=== PATIENT | female | born 1995 | race Hispanic/Latino ===

== ENCOUNTER 2022-06-20 15:03 | Emergency (ER) | payer SELFPAY ==
[2022-06-20 16:10] LABS: #Eosinphils 0.1 10x3/uL (0.0-0.5); #Monocytes 0.6 10x3/uL (0.0-1.1); #Neutrophils 8.7 10x3/uL (1.5-8.4); %Basophils 0.2 % (0.0-2.0); %Eosinophils 0.5 % (0.0-6.0); %Lymphocytes 29.4 % (18.0-47.0); %Monocytes 4.8 % (0.0-10.0); %Neutrophils 64.8 % (40.0-75.0); Hemoglobin 12.2 g/dL (12.0-15.5); Mean Corpuscular HGB CONC 35.7 g/dL (32.0-36.0); Mean Corpuscular Hemoglobin 30.3 pg (27.0-33.0); Mean Corpuscular Volume 84.9 fl (81.6-98.3); Mean Platelet Volume 10.6 fl (7.4-10.4); Platelet Count 186 10x3/uL (150-450); Red Blood Cell (RBC) Count 4.03 10x6/uL (3.90-5.03); White Blood Cell (WBC) Count 13.4 10x3/uL (3.5-10.5)
[2022-06-20 16:23] LABS: Anion Gap 14 mmol/L (10-20); BUN (Urea Nitrogen) 13 mg/dL (7.0-18.7); Calc. Creatinine Clearance 0 mL/min (70-130); Calcium 9.1 mg/dL (7.8-10.44); Carbon Dioxide 22 mmol/L (22-29); Chloride 102 mmol/L (98-107); Estimated GFR 122; Glucose 212 mg/dL (70-105); Potassium 3.6 mmol/L (3.5-5.1); Sodium 134 mmol/L (136-145)
== END 2022-06-20 17:28 | disposition home or self-care (01) ==
LOC: CSHERS 15:03
DX: O21.9 Vomiting of pregnancy, unspecified (principal); O24.111 Pre-existing type 2 diabetes mellitus, in pregnancy, first trimester; Z3A.09 9 weeks gestation of pregnancy
CPT/HCPCS: 36415; 76856; 80048; 84702; 85025

== ENCOUNTER 2022-07-20 15:26 | Inpatient (IN) | payer OTHER, SELFPAY ==
[2022-07-20] MEDS ORDERED: Electrolyte Replacement Protocol 1 EACH IVPB PRN (16:13)
[2022-07-20] MEDS ORDERED: Sodium Chloride 0.9% 1,000 ML IV PRN ×4 (16:13)
[2022-07-20] MEDS ORDERED: Dextrose 5 %-0.45 % NaCl 1,000 ML IV PRN (16:13)
[2022-07-20] MEDS ORDERED: NS 0.9% w/ 20 MEQ KCL 1,000 ML IV PRN ×2 (16:13)
[2022-07-20] MEDS ORDERED: Acetaminophen 325 MG TAB PO PRN (16:13)
[2022-07-20] MEDS ORDERED: INSULIN REGULAR IN 0.9 % NACL 100 UNIT in Premix Bag 1 BAG IVPB SCH (16:30)
[2022-07-20] MEDS: Ondansetron PF 4 MG/2 ML Vial IVP PRN ×2 (16:34→20:32)
[2022-07-20] MEDS ORDERED: FLU VACC QS2022-23(6MOS UP)/PF 60 MCG/0.5 ML SYRINGE IM ONE (17:00)
[2022-07-20 17:06] LABS: Anion Gap 15 mmol/L (10-20); BUN (Urea Nitrogen) 11 mg/dL (7.0-18.7); Calc. Creatinine Clearance 194 mL/min (70-130); Calcium 8.9 mg/dL (7.8-10.44); Carbon Dioxide 19 mmol/L (22-29); Chloride 111 mmol/L (98-107); Estimated GFR 119; Glucose 197 mg/dL (70-105); Phosphorus 2.1 mg/dL (2.3-4.7); Potassium 3.3 mmol/L (3.5-5.1); Sodium 142 mmol/L (136-145)
[2022-07-20] MEDS: D5 1/2 NS w/20 mEq KCL 1,000 ML IV PRN ×2 (18:30→22:30)
[2022-07-20 21:05] LABS: Anion Gap 14 mmol/L (10-20); BUN (Urea Nitrogen) 12 mg/dL (7.0-18.7); Calc. Creatinine Clearance 186 mL/min (70-130); Calcium 8.9 mg/dL (7.8-10.44); Carbon Dioxide 21 mmol/L (22-29); Chloride 113 mmol/L (98-107); Estimated GFR 113; Glucose 137 mg/dL (70-105); Potassium 3.5 mmol/L (3.5-5.1); Sodium 144 mmol/L (136-145)
[2022-07-20] MEDS ORDERED: Lantus 1000 UNITS/10 ML VIAL SC SCH (21:45)
[2022-07-20 22:00] LABS: Hemoglobin A1c 7.5 % (4.0-6.0)
[2022-07-21 01:11] LABS: Anion Gap 15 mmol/L (10-20); BUN (Urea Nitrogen) 12 mg/dL (7.0-18.7); Calc. Creatinine Clearance 172 mL/min (70-130); Calcium 8.8 mg/dL (7.8-10.44); Carbon Dioxide 18 mmol/L (22-29); Chloride 111 mmol/L (98-107); Estimated GFR 103; Glucose 265 mg/dL (70-105); Potassium 3.6 mmol/L (3.5-5.1); Sodium 140 mmol/L (136-145)
[2022-07-21] MEDS: Ondansetron PF 4 MG/2 ML Vial IVP PRN ×6 (01:31→21:12)
[2022-07-21] MEDS: D5 1/2 NS w/20 mEq KCL 1,000 ML IV PRN ×2 (02:37→06:30)
[2022-07-21 04:30] LABS: SARS-CoV-2 NAA Rapid Test Not Detected (NotDetected)
[2022-07-21 04:46] LABS: Anion Gap 13 mmol/L (10-20); BUN (Urea Nitrogen) 11 mg/dL (7.0-18.7); Calc. Creatinine Clearance 172 mL/min (70-130); Calcium 8.5 mg/dL (7.8-10.44); Carbon Dioxide 20 mmol/L (22-29); Chloride 113 mmol/L (98-107); Estimated GFR 103; Glucose 221 mg/dL (70-105); Potassium 3.4 mmol/L (3.5-5.1); Sodium 143 mmol/L (136-145)
[2022-07-21] MEDS: Lantus 1000 UNITS/10 ML VIAL SC SCH ×2 (08:14→21:10)
[2022-07-21] MEDS: Enoxaparin Sodium 40 MG/0.4 ML SYRINGE SC SCH (08:17)
[2022-07-21 08:50] LABS: Phosphorus 2.3 mg/dL (2.3-4.7)
[2022-07-21] MEDS ORDERED: Dextrose 5% in Water 1,000 ML IV PRN (10:16)
[2022-07-21] MEDS ORDERED: Dextrose 50% Abboject 50 ML SYRINGE SLOW IVP PRN (10:16)
[2022-07-21] MEDS: Lactated Ringer's 1,000 ML IV SCH ×3 (10:51→21:10)
[2022-07-21] MEDS: HumaLOG 300 UNITS/3 ML VIAL SC SCH ×2 (11:28→16:15)
[2022-07-21] MEDS: HumaLOG 300 UNITS/3 ML VIAL SC PRN (21:11)
[2022-07-22] MEDS: HumaLOG 300 UNITS/3 ML VIAL SC PRN ×2 (00:30→04:42)
[2022-07-22] MEDS: Ondansetron PF 4 MG/2 ML Vial IVP PRN ×2 (01:00→11:40)
[2022-07-22] MEDS: Promethazine HCl 12.5 MG in Sodium Chloride 0.9% 50 ML IVPB PRN ×3 (01:53→13:29)
[2022-07-22] MEDS: Lactated Ringer's 1,000 ML IV SCH ×5 (01:54→22:28)
[2022-07-22 05:21] LABS: #Monocytes 0.7 10x3/uL (0.0-1.1); %Basophils 0.2 % (0.0-2.0); %Eosinophils 0.1 % (0.0-6.0); %Lymphocytes 14.2 % (18.0-47.0); %Monocytes 3.8 % (0.0-10.0); %Neutrophils 81.1 % (40.0-75.0); Hemoglobin 10.4 g/dL (12.0-15.5); Mean Corpuscular Hemoglobin 30.1 pg (27.0-33.0); Mean Corpuscular Volume 86.1 fl (81.6-98.3); Mean Platelet Volume 10.2 fl (7.4-10.4); Platelet Count 166 10x3/uL (150-450); RBC Distribution Width 14.5 % (11.5-14.5); Red Blood Cell (RBC) Count 3.45 10x6/uL (3.90-5.03); White Blood Cell (WBC) Count 17.3 10x3/uL (3.5-10.5)
[2022-07-22 05:22] LABS: Anion Gap 14 mmol/L (10-20); BUN (Urea Nitrogen) 10 mg/dL (7.0-18.7); Calc. Creatinine Clearance 193 mL/min (70-130); Calcium 8.7 mg/dL (7.8-10.44); Carbon Dioxide 22 mmol/L (22-29); Chloride 109 mmol/L (98-107); Estimated GFR 115; Glucose 195 mg/dL (70-105); Magnesium 1.7 mg/dL (1.6-2.6); Phosphorus 3.6 mg/dL (2.3-4.7); Sodium 142 mmol/L (136-145)
[2022-07-22] MEDS ORDERED: Magnesium 2 GM/50 ML(in water) 2 GM in Premix Bag 1 BAG IVPB SCH (08:00)
[2022-07-22] MEDS: HumaLOG 300 UNITS/3 ML VIAL SC SCH ×3 (08:25→17:25)
[2022-07-22] MEDS: Lantus 1000 UNITS/10 ML VIAL SC SCH ×2 (08:25→21:26)
[2022-07-22] MEDS: Enoxaparin Sodium 40 MG/0.4 ML SYRINGE SC SCH (08:26)
[2022-07-22] MEDS: Potassium Chloride 20 MEQ TAB PO SCH ×2 (08:26→09:20)
[2022-07-22] MEDS: Potassium Chloride 20 MEQ in Premix Bag 1 BAG IVPB SCH ×2 (10:09→12:20)
[2022-07-22] MEDS ORDERED: Metoclopramide HCl 10 MG/2 ML VIAL IVP SCH (13:00)
[2022-07-22 13:12] LABS: Free T4 (Free Thyroxine) 0.97 ng/dL (0.70-1.48)
[2022-07-22] MEDS: Metoclopramide HCl 10 MG/2 ML VIAL IVP SCH (21:21)
[2022-07-23] MEDS: HumaLOG 300 UNITS/3 ML VIAL SC PRN (01:01)
[2022-07-23] MEDS: Lactated Ringer's 1,000 ML IV SCH ×5 (02:20→20:55)
[2022-07-23 04:44] LABS: #Monocytes 0.7 10x3/uL (0.0-1.1); #Neutrophils 10.8 10x3/uL (1.5-8.4); %Basophils 0.1 % (0.0-2.0); %Eosinophils 0.1 % (0.0-6.0); %Lymphocytes 20.3 % (18.0-47.0); %Neutrophils 73.9 % (40.0-75.0); Anion Gap 12 mmol/L (10-20); BUN (Urea Nitrogen) 8 mg/dL (7.0-18.7); Calc. Creatinine Clearance 226 mL/min (70-130); Calcium 8.6 mg/dL (7.8-10.44); Carbon Dioxide 26 mmol/L (22-29); Chloride 105 mmol/L (98-107); Estimated GFR 124; Glucose 162 mg/dL (70-105); Hemoglobin 10.7 g/dL (12.0-15.5); Magnesium 1.8 mg/dL (1.6-2.6); Mean Corpuscular HGB CONC 35.8 g/dL (32.0-36.0); Mean Corpuscular Hemoglobin 30.4 pg (27.0-33.0); Mean Corpuscular Volume 84.9 fl (81.6-98.3); Mean Platelet Volume 10.3 fl (7.4-10.4); Platelet Count 162 10x3/uL (150-450); Potassium 2.9 mmol/L (3.5-5.1); RBC Distribution Width 13.9 % (11.5-14.5); Red Blood Cell (RBC) Count 3.52 10x6/uL (3.90-5.03); Sodium 140 mmol/L (136-145); White Blood Cell (WBC) Count 14.7 10x3/uL (3.5-10.5)
[2022-07-23] MEDS: Metoclopramide HCl 10 MG/2 ML VIAL IVP SCH ×3 (05:10→20:55)
[2022-07-23] MEDS ORDERED: Magnesium 2 GM/50 ML(in water) 2 GM in Premix Bag 1 BAG IVPB SCH (05:15)
[2022-07-23] MEDS ORDERED: Potassium Chloride 20 MEQ/100 ML PREMIX BAG ONE (05:30)
[2022-07-23] MEDS: Potassium Chloride 20 MEQ in Premix Bag 1 BAG IVPB SCH ×4 (05:31→11:47)
[2022-07-23] MEDS: Promethazine HCl 12.5 MG in Sodium Chloride 0.9% 50 ML IVPB PRN ×2 (06:28→18:18)
[2022-07-23] MEDS: Lantus 1000 UNITS/10 ML VIAL SC SCH ×2 (08:00→21:03)
[2022-07-23] MEDS: Enoxaparin Sodium 40 MG/0.4 ML SYRINGE SC SCH (08:00)
[2022-07-23] MEDS: HumaLOG 300 UNITS/3 ML VIAL SC SCH ×4 (08:05→16:00)
[2022-07-23 13:49] LABS: Bilirubin Neg (Negative); Blood, Urine 25 (Negative); CAUTI Indications for Culture Pregnancy; Clarity Clear (Clear); Glucose, Urine (Dipstick) 100 mg/dL (Negative); Ketone, Urine 50 mg/dL (Negative); Leukocyte 25 (Negative); Nitrite Negative (Negative); Protein, Urine (Dipstick) 15 mg/dl (Neg-Trace)
[2022-07-23 13:50] LABS: Urine Culture Reflex Yes Yes
[2022-07-23 14:00] LABS: Bacteria/HPF Rare-Few HPF (None Seen); Yeast-Budding Rare HPF (None Seen)
[2022-07-24 04:54] LABS: #Eosinphils 0.1 10x3/uL (0.0-0.5); #Monocytes 0.8 10x3/uL (0.0-1.1); #Neutrophils 8.5 10x3/uL (1.5-8.4); %Basophils 0.2 % (0.0-2.0); %Eosinophils 0.7 % (0.0-6.0); %Lymphocytes 26.6 % (18.0-47.0); %Monocytes 6.4 % (0.0-10.0); %Neutrophils 65.7 % (40.0-75.0); Hemoglobin 10.4 g/dL (12.0-15.5); Mean Corpuscular HGB CONC 36.4 g/dL (32.0-36.0); Mean Corpuscular Hemoglobin 30.3 pg (27.0-33.0); Mean Corpuscular Volume 83.4 fl (81.6-98.3); Mean Platelet Volume 10.3 fl (7.4-10.4); Platelet Count 152 10x3/uL (150-450); RBC Distribution Width 13.4 % (11.5-14.5); Red Blood Cell (RBC) Count 3.43 10x6/uL (3.90-5.03)
[2022-07-24 05:05] LABS: Anion Gap 13 mmol/L (10-20); BUN (Urea Nitrogen) 7 mg/dL (7.0-18.7); Calc. Creatinine Clearance 249 mL/min (70-130); Calcium 8.5 mg/dL (7.8-10.44); Carbon Dioxide 24 mmol/L (22-29); Chloride 103 mmol/L (98-107); Estimated GFR 127; Glucose 98 mg/dL (70-105); Sodium 137 mmol/L (136-145)
[2022-07-24] MEDS: Lactated Ringer's 1,000 ML IV SCH ×2 (05:21→16:24)
[2022-07-24] MEDS: Metoclopramide HCl 10 MG/2 ML VIAL IVP SCH ×3 (05:36→22:33)
[2022-07-24] MEDS: Potassium Chloride 20 MEQ in Premix Bag 1 BAG IVPB SCH ×2 (06:26→09:17)
[2022-07-24] MEDS: Lantus 1000 UNITS/10 ML VIAL SC SCH (09:12)
[2022-07-24] MEDS: HumaLOG 300 UNITS/3 ML VIAL SC SCH ×3 (09:12→16:47)
[2022-07-24] MEDS: diphenhydrAMINE 50 MG/ML VIAL IVP SCH ×3 (09:16→20:21)
[2022-07-24] MEDS: Ondansetron PF 4 MG/2 ML Vial IVP SCH ×3 (09:16→20:21)
[2022-07-24] MEDS: Enoxaparin Sodium 40 MG/0.4 ML SYRINGE SC SCH (09:17)
[2022-07-24] MEDS: cefTRIAXone\\ROCEPHIN 1 GM in Sodium Chloride 0.9% 100 ML IVPB SCH (09:17)
[2022-07-25] MEDS: diphenhydrAMINE 50 MG/ML VIAL IVP SCH ×4 (01:50→20:30)
[2022-07-25] MEDS: Ondansetron PF 4 MG/2 ML Vial IVP SCH ×4 (01:50→20:30)
[2022-07-25] MEDS: Lactated Ringer's 1,000 ML IV SCH ×2 (02:15→14:24)
[2022-07-25] MEDS: Metoclopramide HCl 10 MG/2 ML VIAL IVP SCH ×3 (06:08→22:49)
[2022-07-25] MEDS: HumaLOG 300 UNITS/3 ML VIAL SC SCH ×3 (08:29→17:16)
[2022-07-25] MEDS: Enoxaparin Sodium 40 MG/0.4 ML SYRINGE SC SCH (08:29)
[2022-07-25 08:39] VITALS: BMI 37.1
[2022-07-25] MEDS ORDERED: Fluconazole In NaCl,Iso-Osm 200 MG in Premix Bag 1 BAG IVPB SCH (09:00)
[2022-07-25] MEDS: cefTRIAXone\\ROCEPHIN 1 GM in Sodium Chloride 0.9% 100 ML IVPB SCH (09:46)
[2022-07-25] MEDS ORDERED: Metoclopramide HCl 10 MG/2 ML VIAL ONE (13:55)
[2022-07-25 15:34] LABS: ALT (SGPT) 16 U/L (8-55); AST (SGOT) 13 U/L (5-34); Albumin 3.1 g/dL (3.5-5.0); Alkaline Phosphatase 48 U/L (40-110); Bilirubin, Direct 0.3 mg/dL (0.1-0.3); Bilirubin, Total 0.7 mg/dL (0.2-1.2)
[2022-07-26] MEDS: Ondansetron PF 4 MG/2 ML Vial IVP SCH ×2 (01:58→07:59)
[2022-07-26] MEDS: diphenhydrAMINE 50 MG/ML VIAL IVP SCH ×3 (01:58→14:11)
[2022-07-26] MEDS: Metoclopramide HCl 10 MG/2 ML VIAL IVP SCH (05:30)
[2022-07-26] MEDS: Enoxaparin Sodium 40 MG/0.4 ML SYRINGE SC SCH (07:59)
[2022-07-26] MEDS: cefTRIAXone\\ROCEPHIN 1 GM in Sodium Chloride 0.9% 100 ML IVPB SCH (07:59)
[2022-07-26] MEDS: HumaLOG 300 UNITS/3 ML VIAL SC SCH ×3 (08:00→16:57)
[2022-07-26] MEDS ORDERED: Fleet Enema 133 ML BOT PR SCH (09:00)
[2022-07-26] MEDS ORDERED: Ondansetron ODT 8 MG TAB PO PRN (09:55)
[2022-07-26] MEDS ORDERED: Promethazine 25 MG TAB PO PRN (09:56)
[2022-07-26] MEDS: Ondansetron ODT 4 MG TAB PO PRN ×2 (11:35→17:34)
[2022-07-26 16:23] LABS: Protein, Urine 19 mg/dL (1-14)
[2022-07-26 16:47] LABS: Protein - 24 Hr 485 mg/24 hr (Less than 300); Urine Total Volume 2550 mL (600-1600)
[2022-07-26 17:42] VITALS: BP 129/77; TEMP 98.6
== END 2022-07-26 18:06 | disposition home or self-care (01) | DRG 831 ==
LOC: CSHIMCU 15:26 → CSHTELE 07-21 18:25
PROVIDERS: ADMIT Internal Medicine; ATTEND Hospitalist
DX: O24.112 Pre-existing type 2 diabetes mellitus, in pregnancy, second trimester (principal); E11.10 Type 2 diabetes mellitus with ketoacidosis without coma; O21.1 Hyperemesis gravidarum with metabolic disturbance; O99.282 Endocrine, nutritional and metabolic diseases complicating pregnancy, second trimester; Z3A.14 14 weeks gestation of pregnancy; Z79.84 Long term (current) use of oral hypoglycemic drugs; Z98.890 Other specified postprocedural states; E83.42 Hypomagnesemia; Z20.822 Contact with and (suspected) exposure to COVID-19
CPT/HCPCS: 36415; 36416; 80048; 80076; 81001; 83036; 83735; 84100; 84156; 84439; 84443; 84550; 85025; 87086; J0696; J1200; J1450; J1650; J1815; J2405; J2550; J2765; J3475; J3480; J3490; J7120; Q0162; U0002

== ENCOUNTER 2022-09-06 20:50 | Day surgery (SDC) | payer OTHER ==
[2022-09-06] MEDS ORDERED: Lactated Ringer's 1,000 ML IV SCH (21:15)
[2022-09-06] MEDS ORDERED: Ondansetron PF 4 MG/2 ML Vial IVP SCH (21:30)
[2022-09-06 21:37] VITALS: BMI 40.4
[2022-09-06] MEDS ORDERED: Promethazine HCl 25 MG/ML VIAL IM SCH (21:45)
[2022-09-06 21:46] LABS: #Monocytes 0.6 10x3/uL (0.0-1.1); #Neutrophils 13.2 10x3/uL (1.5-8.4); %Basophils 0.2 % (0.0-2.0); %Eosinophils 0.2 % (0.0-6.0); %Lymphocytes 16.6 % (18.0-47.0); %Monocytes 3.3 % (0.0-10.0); %Neutrophils 78.7 % (40.0-75.0); Hemoglobin 11.1 g/dL (12.0-15.5); Mean Corpuscular HGB CONC 34.9 g/dL (32.0-36.0); Mean Corpuscular Hemoglobin 30.7 pg (27.0-33.0); Mean Corpuscular Volume 87.8 fl (81.6-98.3); Mean Platelet Volume 10.7 fl (7.4-10.4); Platelet Count 234 10x3/uL (150-450); RBC Distribution Width 14.2 % (11.5-14.5); Red Blood Cell (RBC) Count 3.62 10x6/uL (3.90-5.03); White Blood Cell (WBC) Count 16.7 10x3/uL (3.5-10.5)
[2022-09-06 21:48] LABS: ALT (SGPT) 13 U/L (8-55); AST (SGOT) 13 U/L (5-34); Alkaline Phosphatase 47 U/L (40-110); Anion Gap 17 mmol/L (10-20); BUN (Urea Nitrogen) 11 mg/dL (7.0-18.7); Bilirubin, Total 0.3 mg/dL (0.2-1.2); Calc. Creatinine Clearance 214 mL/min (70-130); Calcium 9.9 mg/dL (7.8-10.44); Carbon Dioxide 22 mmol/L (22-29); Chloride 102 mmol/L (98-107); Estimated GFR 122; Globulin 3.9 g/dL (2.4-3.5); Glucose 146 mg/dL (70-105); Potassium 3.3 mmol/L (3.5-5.1); Protein, Total 7.9 g/dL (6.0-8.3); Sodium 138 mmol/L (136-145)
[2022-09-06] MEDS ORDERED: Potassium Chloride 10 MEQ in Premix Bag 1 BAG IVPB SCH (22:30)
[2022-09-07] MEDS ORDERED: Ondansetron PF 4 MG/2 ML Vial IVP PRN (00:02)
[2022-09-07] MEDS ORDERED: Acetaminophen 325 MG TAB PO PRN (00:02)
[2022-09-07] MEDS ORDERED: Dextrose 50% Abboject 50 ML SYRINGE SLOW IVP PRN (00:15)
[2022-09-07] MEDS ORDERED: Dextrose 5% in Water 1,000 ML IV PRN (00:15)
[2022-09-07 00:39] LABS: Lactic Acid 1.4 mmol/L (0.5-2.2)
[2022-09-07 01:50] LABS: Bilirubin Neg (Negative); Blood, Urine 25 (Negative); CAUTI Indications for Culture Pregnancy; Clarity Cloudy (Clear); Glucose, Urine (Dipstick) 50 mg/dL (Negative); Ketone, Urine 150 mg/dL (Negative); Leukocyte Negative (Negative); Nitrite Negative (Negative); Protein, Urine (Dipstick) 30 mg/dl (Neg-Trace)
[2022-09-07 02:05] LABS: Bacteria/HPF 2+ HPF (None Seen); RBC/HPF 0-3 HPF (0-3); Squamous Epithelial None Seen HPF (0-3); Transitional Epithelial 0-3 HPF (None Seen); WBC/HPF 0-3 HPF (0-3)
[2022-09-07 02:07] LABS: Urine Culture Reflex Yes Yes
[2022-09-07 04:40] LABS: ALT (SGPT) 10 U/L (8-55); AST (SGOT) 8 U/L (5-34); Albumin 3.5 g/dL (3.5-5.0); Alkaline Phosphatase 44 U/L (40-110); Anion Gap 19 mmol/L (10-20); BUN (Urea Nitrogen) 12 mg/dL (7.0-18.7); Bilirubin, Total 0.3 mg/dL (0.2-1.2); Calc. Creatinine Clearance 202 mL/min (70-130); Carbon Dioxide 20 mmol/L (22-29); Chloride 106 mmol/L (98-107); Estimated GFR 117; Globulin 3.4 g/dL (2.4-3.5); Glucose 240 mg/dL (70-105); Potassium 3.5 mmol/L (3.5-5.1); Protein, Total 6.9 g/dL (6.0-8.3); Sodium 141 mmol/L (136-145)
[2022-09-07 04:49] LABS: #Monocytes 0.3 10x3/uL (0.0-1.1); #Neutrophils 15.6 10x3/uL (1.5-8.4); %Basophils 0.2 % (0.0-2.0); %Monocytes 1.6 % (0.0-10.0); %Neutrophils 88.1 % (40.0-75.0); Hemoglobin 10.7 g/dL (12.0-15.5); Mean Corpuscular HGB CONC 34.9 g/dL (32.0-36.0); Mean Corpuscular Hemoglobin 31.2 pg (27.0-33.0); Mean Corpuscular Volume 89.5 fl (81.6-98.3); Mean Platelet Volume 10.6 fl (7.4-10.4); Platelet Count 220 10x3/uL (150-450); RBC Distribution Width 14.3 % (11.5-14.5); Red Blood Cell (RBC) Count 3.43 10x6/uL (3.90-5.03); White Blood Cell (WBC) Count 17.7 10x3/uL (3.5-10.5)
[2022-09-07] MEDS ORDERED: Metoclopramide HCl 10 MG/2 ML VIAL IVP SCH (06:00)
[2022-09-07] MEDS ORDERED: Famotidine/PF 20 mg/2ml Vial SLOW IVP SCH (09:00)
== END 2022-09-06 22:42 | disposition other institution (70) ==
LOC: CSHLD/OP 20:50
PROVIDERS: ATTEND Family Medicine
DX: O21.1 Hyperemesis gravidarum with metabolic disturbance (principal); O24.112 Pre-existing type 2 diabetes mellitus, in pregnancy, second trimester; E11.10 Type 2 diabetes mellitus with ketoacidosis without coma; O99.282 Endocrine, nutritional and metabolic diseases complicating pregnancy, second trimester; E86.0 Dehydration; Z79.4 Long term (current) use of insulin; Z3A.21 21 weeks gestation of pregnancy
CPT/HCPCS: 36415; 36416; 80053; 81001; 83605; 85025; 87077; 87086; 99282; J2550; J3480

== ENCOUNTER 2022-09-06 22:43 | Inpatient (IN) | payer OTHER ==
[2022-09-06] MEDS ORDERED: Metoclopramide HCl 10 MG/2 ML VIAL ONE (22:57)
[2022-09-07 01:10] LABS: SARS-CoV-2 NAA Rapid Test Not Detected (NotDetected)
[2022-09-07] MEDS ORDERED: Dextrose 5% in Water 1,000 ML IV PRN (01:15)
[2022-09-07] MEDS ORDERED: Dextrose 50% Abboject 50 ML SYRINGE SLOW IVP PRN (01:15)
[2022-09-07 01:31] LABS: Magnesium 1.8 mg/dL (1.6-2.6)
[2022-09-07] MEDS: Potassium Chloride 20 MEQ in Premix Bag 1 BAG IVPB SCH ×4 (02:21→23:42)
[2022-09-07 03:57] LABS: Bilirubin Neg (Negative); Blood, Urine 50 (Negative); Glucose, Urine (Dipstick) >=1000 mg/dL (Negative); Ketone, Urine 150 mg/dL (Negative); Leukocyte Negative (Negative); Nitrite Negative (Negative); Protein, Urine (Dipstick) 30 mg/dl (Neg-Trace); Urobilinogen Normal mg/dL (Less than 2)
[2022-09-07 04:05] LABS: Bacteria/HPF 3+ HPF (None Seen); CAUTI Indications for Culture Pregnancy; Clarity Slightly Cloudy (Clear); RBC/HPF 0-3 HPF (0-3); WBC/HPF 0-3 HPF (0-3)
[2022-09-07] MEDS ORDERED: Lactated Ringer's 1,000 ML IV SCH (05:15)
[2022-09-07] MEDS: Lactated Ringer's 1,000 ML IV SCH ×3 (05:18→21:25)
[2022-09-07] MEDS: Metoclopramide HCl 10 MG/2 ML VIAL IVP SCH ×3 (05:41→23:43)
[2022-09-07 07:05] LABS: #Monocytes 0.5 10x3/uL (0.0-1.1); #Neutrophils 15.4 10x3/uL (1.5-8.4); %Basophils 0.1 % (0.0-2.0); %Lymphocytes 11.4 % (18.0-47.0); %Monocytes 2.5 % (0.0-10.0); Hemoglobin 9.9 g/dL (12.0-15.5); Mean Corpuscular HGB CONC 35.1 g/dL (32.0-36.0); Mean Corpuscular Hemoglobin 31.1 pg (27.0-33.0); Mean Corpuscular Volume 88.7 fl (81.6-98.3); Mean Platelet Volume 10.4 fl (7.4-10.4); Platelet Count 210 10x3/uL (150-450); RBC Distribution Width 14.5 % (11.5-14.5); Red Blood Cell (RBC) Count 3.18 10x6/uL (3.90-5.03); White Blood Cell (WBC) Count 18.1 10x3/uL (3.5-10.5)
[2022-09-07] MEDS: HumaLOG 300 UNITS/3 ML VIAL SC PRN ×2 (07:12→14:41)
[2022-09-07 07:17] LABS: Anion Gap 20 mmol/L (10-20); BUN (Urea Nitrogen) 10 mg/dL (7.0-18.7); Calc. Creatinine Clearance 0 mL/min (70-130); Calcium 8.5 mg/dL (7.8-10.44); Carbon Dioxide 16 mmol/L (22-29); Chloride 108 mmol/L (98-107); Estimated GFR 121; Glucose 228 mg/dL (70-105); Potassium 3.8 mmol/L (3.5-5.1); Sodium 140 mmol/L (136-145)
[2022-09-07] MEDS: Famotidine/PF 20 mg/2ml Vial SLOW IVP SCH ×2 (09:26→20:37)
[2022-09-07] MEDS: Lantus 1000 UNITS/10 ML VIAL SC SCH (09:26)
[2022-09-07] MEDS: Ondansetron PF 4 MG/2 ML Vial IVP PRN ×2 (11:49→17:39)
[2022-09-07 19:29] LABS: #Neutrophils 15.6 10x3/uL (1.5-8.4); %Basophils 0.2 % (0.0-2.0); %Eosinophils 0.1 % (0.0-6.0); %Lymphocytes 13.4 % (18.0-47.0); %Monocytes 5.1 % (0.0-10.0); %Neutrophils 80.3 % (40.0-75.0); Hemoglobin 9.8 g/dL (12.0-15.5); Mean Corpuscular HGB CONC 34.4 g/dL (32.0-36.0); Mean Corpuscular Hemoglobin 31.1 pg (27.0-33.0); Mean Corpuscular Volume 90.5 fl (81.6-98.3); Mean Platelet Volume 10.4 fl (7.4-10.4); Platelet Count 209 10x3/uL (150-450); RBC Distribution Width 14.6 % (11.5-14.5); Red Blood Cell (RBC) Count 3.15 10x6/uL (3.90-5.03); White Blood Cell (WBC) Count 19.4 10x3/uL (3.5-10.5)
[2022-09-07 20:25] LABS: Anion Gap 14 mmol/L (10-20); BUN (Urea Nitrogen) 10 mg/dL (7.0-18.7); Calc. Creatinine Clearance 0 mL/min (70-130); Calcium 8.5 mg/dL (7.8-10.44); Carbon Dioxide 21 mmol/L (22-29); Chloride 108 mmol/L (98-107); Estimated GFR 124; Glucose 164 mg/dL (70-105); Magnesium 2.1 mg/dL (1.6-2.6); Potassium 3.5 mmol/L (3.5-5.1); Sodium 139 mmol/L (136-145)
[2022-09-07] MEDS: Doxylamine 25 MG TAB PO SCH ×2 (20:38→21:58)
[2022-09-07] MEDS: cefTRIAXone\\ROCEPHIN 2 GM in Sodium Chloride 0.9% 100 ML IVPB SCH (21:36)
[2022-09-07] MEDS: Ondansetron PF 4 MG/2 ML Vial IVP SCH (23:45)
[2022-09-07] MEDS: pyridOXINE 50 MG (B6) TAB PO SCH (23:47)
[2022-09-08] MEDS: HumaLOG 300 UNITS/3 ML VIAL SC PRN ×3 (00:06→18:28)
[2022-09-08] MEDS: Potassium Chloride 20 MEQ in Premix Bag 1 BAG IVPB SCH (02:02)
[2022-09-08] MEDS: Doxylamine 25 MG TAB PO SCH ×4 (02:37→20:24)
[2022-09-08 05:19] LABS: #Monocytes 0.8 10x3/uL (0.0-1.1); #Neutrophils 13.9 10x3/uL (1.5-8.4); %Basophils 0.2 % (0.0-2.0); %Eosinophils 0.1 % (0.0-6.0); %Lymphocytes 15.2 % (18.0-47.0); %Monocytes 4.8 % (0.0-10.0); %Neutrophils 78.9 % (40.0-75.0); Hemoglobin 9.4 g/dL (12.0-15.5); Mean Corpuscular HGB CONC 34.3 g/dL (32.0-36.0); Mean Corpuscular Hemoglobin 31.4 pg (27.0-33.0); Mean Corpuscular Volume 91.6 fl (81.6-98.3); Mean Platelet Volume 10.4 fl (7.4-10.4); Platelet Count 208 10x3/uL (150-450); RBC Distribution Width 14.4 % (11.5-14.5); Red Blood Cell (RBC) Count 2.99 10x6/uL (3.90-5.03); White Blood Cell (WBC) Count 17.6 10x3/uL (3.5-10.5)
[2022-09-08] MEDS: Lactated Ringer's 1,000 ML IV SCH (05:24)
[2022-09-08 05:27] LABS: Anion Gap 13 mmol/L (10-20); BUN (Urea Nitrogen) 8 mg/dL (7.0-18.7); Calc. Creatinine Clearance 0 mL/min (70-130); Calcium 8.5 mg/dL (7.8-10.44); Carbon Dioxide 21 mmol/L (22-29); Chloride 108 mmol/L (98-107); Estimated GFR 125; Glucose 167 mg/dL (70-105); Potassium 3.6 mmol/L (3.5-5.1); Sodium 138 mmol/L (136-145)
[2022-09-08] MEDS: Metoclopramide HCl 10 MG/2 ML VIAL IVP SCH ×4 (05:40→23:51)
[2022-09-08] MEDS: Ondansetron PF 4 MG/2 ML Vial IVP SCH ×4 (05:43→23:51)
[2022-09-08] MEDS: pyridOXINE 50 MG (B6) TAB PO SCH ×4 (05:51→23:26)
[2022-09-08] MEDS: Lantus 1000 UNITS/10 ML VIAL SC SCH (09:32)
[2022-09-08] MEDS: Famotidine/PF 20 mg/2ml Vial SLOW IVP SCH (09:32)
[2022-09-08] MEDS ORDERED: Sodium Chloride 0.9% 1,000 ML IV SCH (13:30)
[2022-09-08] MEDS ORDERED: Pantoprazole 40 MG VIAL IVP SCH (14:00)
[2022-09-08] MEDS ORDERED: Multivit, Adult Inj 10 ML VIAL IV SCH (15:00)
[2022-09-08] MEDS: Multivitamins, Adult 10 ML, Thiamine HCl 100 MG, Folic Acid 1 MG in Dextrose 5 %-0.45 %... IV SCH (15:11)
[2022-09-08] MEDS: diphenhydrAMINE 25 MG, Admixture Fee 1 EACH in Sodium Chloride 0.9% 50 ML IVPB SCH ×3 (17:56→23:50)
[2022-09-08] MEDS: cefTRIAXone\\ROCEPHIN 2 GM in Sodium Chloride 0.9% 100 ML IVPB SCH (21:41)
[2022-09-09] MEDS: HumaLOG 300 UNITS/3 ML VIAL SC PRN ×3 (00:07→18:06)
[2022-09-09] MEDS: Doxylamine 25 MG TAB PO SCH ×4 (03:28→21:00)
[2022-09-09 05:15] LABS: #Monocytes 0.8 10x3/uL (0.0-1.1); %Basophils 0.3 % (0.0-2.0); %Eosinophils 0.3 % (0.0-6.0); %Lymphocytes 21.5 % (18.0-47.0); %Monocytes 5.3 % (0.0-10.0); %Neutrophils 71.6 % (40.0-75.0); Hemoglobin 8.8 g/dL (12.0-15.5); Mean Corpuscular HGB CONC 35.1 g/dL (32.0-36.0); Mean Corpuscular Hemoglobin 31.7 pg (27.0-33.0); Mean Corpuscular Volume 90.3 fl (81.6-98.3); Mean Platelet Volume 10.2 fl (7.4-10.4); Platelet Count 194 10x3/uL (150-450); Red Blood Cell (RBC) Count 2.78 10x6/uL (3.90-5.03); White Blood Cell (WBC) Count 15.3 10x3/uL (3.5-10.5)
[2022-09-09 05:17] LABS: ALT (SGPT) 6 U/L (8-55); AST (SGOT) 9 U/L (5-34); Albumin 3.2 g/dL (3.5-5.0); Alkaline Phosphatase 35 U/L (40-110); Anion Gap 11 mmol/L (10-20); BUN (Urea Nitrogen) 7 mg/dL (7.0-18.7); Bilirubin, Total 0.2 mg/dL (0.2-1.2); Calc. Creatinine Clearance 0 mL/min (70-130); Calcium 7.9 mg/dL (7.8-10.44); Carbon Dioxide 21 mmol/L (22-29); Chloride 108 mmol/L (98-107); Estimated GFR 125; Globulin 2.8 g/dL (2.4-3.5); Glucose 179 mg/dL (70-105); Sodium 137 mmol/L (136-145)
[2022-09-09] MEDS: pyridOXINE 50 MG (B6) TAB PO SCH ×3 (05:47→18:23)
[2022-09-09] MEDS: D5 1/2 NS w/40 mEq KCL 1,000 ML IV SCH ×2 (05:58→16:12)
[2022-09-09] MEDS: Metoclopramide HCl 10 MG/2 ML VIAL IVP SCH (05:58)
[2022-09-09] MEDS: diphenhydrAMINE 25 MG, Admixture Fee 1 EACH in Sodium Chloride 0.9% 50 ML IVPB SCH ×3 (05:59→18:05)
[2022-09-09] MEDS: Ondansetron PF 4 MG/2 ML Vial IVP SCH ×3 (05:59→18:05)
[2022-09-09] MEDS ORDERED: Promethazine HCl 25 MG/ML VIAL IM ONE (07:45)
[2022-09-09] MEDS: Pantoprazole 40 MG VIAL IVP SCH (08:27)
[2022-09-09] MEDS: Magnesium 2 GM/50 ML(in water) 2 GM in Premix Bag 1 BAG IVPB SCH ×2 (09:50→11:50)
[2022-09-09] MEDS: Potassium Chloride 20 MEQ in Premix Bag 1 BAG IVPB SCH ×3 (09:51→15:12)
[2022-09-09] MEDS: Lantus 1000 UNITS/10 ML VIAL SC SCH (09:53)
[2022-09-09] MEDS: Promethazine HCl 12.5 MG SUPP PR SCH ×2 (12:15→18:06)
[2022-09-09] MEDS: Multivitamins, Adult 10 ML, Thiamine HCl 100 MG, Folic Acid 1 MG in Dextrose 5 %-0.45 %... IV SCH (15:10)
[2022-09-09] MEDS: cefTRIAXone\\ROCEPHIN 2 GM in Sodium Chloride 0.9% 100 ML IVPB SCH (20:15)
[2022-09-10] MEDS: D5 1/2 NS w/40 mEq KCL 1,000 ML IV SCH ×3 (00:02→15:16)
[2022-09-10] MEDS ORDERED: Sodium Chloride 0.9% 20 ML ONE (00:12)
[2022-09-10] MEDS: diphenhydrAMINE 25 MG, Admixture Fee 1 EACH in Sodium Chloride 0.9% 50 ML IVPB SCH ×4 (00:36→18:31)
[2022-09-10] MEDS: pyridOXINE 50 MG (B6) TAB PO SCH ×4 (00:39→17:18)
[2022-09-10] MEDS: Promethazine HCl 12.5 MG SUPP PR SCH ×2 (00:39→06:21)
[2022-09-10] MEDS: Ondansetron PF 4 MG/2 ML Vial IVP SCH ×4 (00:39→17:18)
[2022-09-10] MEDS: Doxylamine 25 MG TAB PO SCH ×4 (05:44→21:08)
[2022-09-10 06:26] LABS: Anion Gap 12 mmol/L (10-20); BUN (Urea Nitrogen) 4 mg/dL (7.0-18.7); Calc. Creatinine Clearance 0 mL/min (70-130); Calcium 7.9 mg/dL (7.8-10.44); Carbon Dioxide 19 mmol/L (22-29); Chloride 105 mmol/L (98-107); Estimated GFR 126; Glucose 179 mg/dL (70-105); Potassium 3.4 mmol/L (3.5-5.1); Sodium 133 mmol/L (136-145)
[2022-09-10 06:31] LABS: #Eosinphils 0.1 10x3/uL (0.0-0.5); #Monocytes 0.7 10x3/uL (0.0-1.1); #Neutrophils 9.5 10x3/uL (1.5-8.4); %Basophils 0.3 % (0.0-2.0); %Eosinophils 0.6 % (0.0-6.0); %Lymphocytes 22.1 % (18.0-47.0); %Monocytes 4.8 % (0.0-10.0); %Neutrophils 71.1 % (40.0-75.0); Hemoglobin 9.5 g/dL (12.0-15.5); Mean Corpuscular HGB CONC 34.9 g/dL (32.0-36.0); Mean Corpuscular Hemoglobin 30.9 pg (27.0-33.0); Mean Corpuscular Volume 88.6 fl (81.6-98.3); Mean Platelet Volume 10.2 fl (7.4-10.4); Platelet Count 195 10x3/uL (150-450); RBC Distribution Width 13.9 % (11.5-14.5); Red Blood Cell (RBC) Count 3.07 10x6/uL (3.90-5.03); White Blood Cell (WBC) Count 13.4 10x3/uL (3.5-10.5)
[2022-09-10] MEDS: Lantus 1000 UNITS/10 ML VIAL SC SCH (09:23)
[2022-09-10] MEDS: Potassium Chloride 20 MEQ in Premix Bag 1 BAG IVPB SCH ×3 (09:24→17:18)
[2022-09-10] MEDS: Pantoprazole 40 MG VIAL IVP SCH (09:24)
[2022-09-10 09:32] LABS: Magnesium 2.2 mg/dL (1.6-2.6)
[2022-09-10] MEDS: Promethazine 25 MG TAB PO SCH ×2 (11:48→17:17)
[2022-09-10] MEDS: Multivitamins, Adult 10 ML, Thiamine HCl 100 MG, Folic Acid 1 MG in Dextrose 5 %-0.45 %... IV SCH (17:18)
[2022-09-10] MEDS: cefTRIAXone\\ROCEPHIN 2 GM in Sodium Chloride 0.9% 100 ML IVPB SCH (21:08)
[2022-09-11] MEDS: Promethazine 25 MG TAB PO SCH ×5 (00:39→23:46)
[2022-09-11] MEDS: pyridOXINE 50 MG (B6) TAB PO SCH ×5 (00:39→23:46)
[2022-09-11] MEDS: diphenhydrAMINE 25 MG, Admixture Fee 1 EACH in Sodium Chloride 0.9% 50 ML IVPB SCH ×5 (00:39→23:46)
[2022-09-11] MEDS: Ondansetron PF 4 MG/2 ML Vial IVP SCH ×5 (00:39→23:46)
[2022-09-11] MEDS: Doxylamine 25 MG TAB PO SCH ×4 (02:17→20:26)
[2022-09-11] MEDS: D5 1/2 NS w/40 mEq KCL 1,000 ML IV SCH ×2 (05:11→12:19)
[2022-09-11 05:58] LABS: Anion Gap 12 mmol/L (10-20); BUN (Urea Nitrogen) 4 mg/dL (7.0-18.7); Calc. Creatinine Clearance 0 mL/min (70-130); Carbon Dioxide 19 mmol/L (22-29); Chloride 106 mmol/L (98-107); Estimated GFR 127; Glucose 129 mg/dL (70-105); Potassium 3.4 mmol/L (3.5-5.1); Sodium 134 mmol/L (136-145)
[2022-09-11 06:09] LABS: #Eosinphils 0.1 10x3/uL (0.0-0.5); #Monocytes 0.7 10x3/uL (0.0-1.1); #Neutrophils 8.3 10x3/uL (1.5-8.4); %Basophils 0.2 % (0.0-2.0); %Eosinophils 0.8 % (0.0-6.0); %Monocytes 5.4 % (0.0-10.0); %Neutrophils 67.7 % (40.0-75.0); Hemoglobin 9.8 g/dL (12.0-15.5); Mean Corpuscular HGB CONC 35.8 g/dL (32.0-36.0); Mean Corpuscular Hemoglobin 31.6 pg (27.0-33.0); Mean Corpuscular Volume 88.4 fl (81.6-98.3); Platelet Count 192 10x3/uL (150-450); White Blood Cell (WBC) Count 12.2 10x3/uL (3.5-10.5)
[2022-09-11] MEDS: Pantoprazole 40 MG VIAL IVP SCH (08:11)
[2022-09-11] MEDS: Lantus 1000 UNITS/10 ML VIAL SC SCH (08:12)
[2022-09-11] MEDS: Potassium Chloride 20 MEQ in Premix Bag 1 BAG IVPB SCH ×2 (08:12→10:35)
[2022-09-11] MEDS: cefTRIAXone\\ROCEPHIN 2 GM in Sodium Chloride 0.9% 100 ML IVPB SCH (21:34)
[2022-09-12] MEDS: Doxylamine 25 MG TAB PO SCH ×4 (01:55→21:12)
[2022-09-12] MEDS: D5 1/2 NS w/40 mEq KCL 1,000 ML IV SCH ×4 (01:57→21:11)
[2022-09-12 04:19] LABS: #Eosinphils 0.1 10x3/uL (0.0-0.5); #Monocytes 0.7 10x3/uL (0.0-1.1); #Neutrophils 8.3 10x3/uL (1.5-8.4); %Basophils 0.3 % (0.0-2.0); %Eosinophils 0.9 % (0.0-6.0); %Lymphocytes 26.7 % (18.0-47.0); %Monocytes 5.8 % (0.0-10.0); %Neutrophils 65.5 % (40.0-75.0); Hemoglobin 10.1 g/dL (12.0-15.5); Mean Corpuscular HGB CONC 35.6 g/dL (32.0-36.0); Mean Corpuscular Hemoglobin 31.1 pg (27.0-33.0); Mean Corpuscular Volume 87.4 fl (81.6-98.3); Mean Platelet Volume 9.9 fl (7.4-10.4); Platelet Count 200 10x3/uL (150-450); RBC Distribution Width 14.2 % (11.5-14.5); Red Blood Cell (RBC) Count 3.25 10x6/uL (3.90-5.03); White Blood Cell (WBC) Count 12.7 10x3/uL (3.5-10.5)
[2022-09-12 04:36] LABS: Anion Gap 12 mmol/L (10-20); BUN (Urea Nitrogen) 5 mg/dL (7.0-18.7); Calc. Creatinine Clearance 0 mL/min (70-130); Calcium 8.1 mg/dL (7.8-10.44); Carbon Dioxide 19 mmol/L (22-29); Chloride 106 mmol/L (98-107); Estimated GFR 127; Glucose 113 mg/dL (70-105); Potassium 3.8 mmol/L (3.5-5.1); Sodium 133 mmol/L (136-145)
[2022-09-12] MEDS: Ondansetron PF 4 MG/2 ML Vial IVP SCH ×4 (06:02→23:58)
[2022-09-12] MEDS: diphenhydrAMINE 25 MG, Admixture Fee 1 EACH in Sodium Chloride 0.9% 50 ML IVPB SCH ×3 (06:02→18:27)
[2022-09-12] MEDS: Promethazine 25 MG TAB PO SCH ×3 (06:03→18:26)
[2022-09-12] MEDS: pyridOXINE 50 MG (B6) TAB PO SCH ×4 (06:03→23:58)
[2022-09-12] MEDS: Lantus 1000 UNITS/10 ML VIAL SC SCH (08:14)
[2022-09-12] MEDS: Pantoprazole 40 MG VIAL IVP SCH (08:15)
[2022-09-12] MEDS: HumaLOG 300 UNITS/3 ML VIAL SC PRN ×2 (11:56→18:28)
[2022-09-12] MEDS: cefTRIAXone\\ROCEPHIN 2 GM in Sodium Chloride 0.9% 100 ML IVPB SCH (21:11)
[2022-09-13] MEDS: Promethazine 25 MG TAB PO SCH ×3 (00:01→12:19)
[2022-09-13] MEDS: diphenhydrAMINE 25 MG, Admixture Fee 1 EACH in Sodium Chloride 0.9% 50 ML IVPB SCH ×3 (00:06→12:20)
[2022-09-13] MEDS: Doxylamine 25 MG TAB PO SCH ×2 (02:06→08:44)
[2022-09-13] MEDS: Ondansetron PF 4 MG/2 ML Vial IVP SCH ×2 (05:48→12:19)
[2022-09-13] MEDS: pyridOXINE 50 MG (B6) TAB PO SCH ×2 (05:48→12:20)
[2022-09-13] MEDS: D5 1/2 NS w/40 mEq KCL 1,000 ML IV SCH (05:55)
[2022-09-13] MEDS: Pantoprazole 40 MG VIAL IVP SCH (08:44)
[2022-09-13] MEDS: Lantus 1000 UNITS/10 ML VIAL SC SCH (08:45)
[2022-09-13 11:19] VITALS: BP 103/57; TEMP 98.4
== END 2022-09-13 13:55 | disposition home or self-care (01) | DRG 832 ==
LOC: CSHERS 22:43 → CSHANTE 09-07 01:05 → OBSVTOIN 09-09 10:55
PROVIDERS: ADMIT Family Medicine; ATTEND Obstetrics & Gynecology
DX: O21.1 Hyperemesis gravidarum with metabolic disturbance (principal); N39.0 Urinary tract infection, site not specified; O24.112 Pre-existing type 2 diabetes mellitus, in pregnancy, second trimester; O23.42 Unspecified infection of urinary tract in pregnancy, second trimester; Z20.822 Contact with and (suspected) exposure to COVID-19; Z3A.21 21 weeks gestation of pregnancy; E11.9 Type 2 diabetes mellitus without complications; Z79.4 Long term (current) use of insulin; Z90.79 Acquired absence of other genital organ(s); Z87.440 Personal history of urinary (tract) infections; E66.01 Morbid (severe) obesity due to excess calories; O99.212 Obesity complicating pregnancy, second trimester
CPT/HCPCS: 36415; 36416; 71045; 76705; 76815; 78227; 80048; 80053; 82010; 83735; 85025; 87040; 87077; 87086; 87186; 96361; 96372; 96374; 96375; 96376; A9537; C9113; G0378; J0696; J1200; J1815; J2405; J2550; J2765; J3411; J3475; J3480; J3490; J7042; J7050; J7120; Q0169; S0028; U0002

== ENCOUNTER 2022-11-07 05:33 | Observation (INO) | payer MEDICAID, OTHER, SELFPAY ==
[2022-11-07] MEDS ORDERED: Ondansetron PF 4 MG/2 ML Vial ONE ×2 (05:56→07:01)
[2022-11-07 06:34] LABS: #Eosinphils 0.1 10x3/uL (0.0-0.5); #Monocytes 0.7 10x3/uL (0.0-1.1); #Neutrophils 12.2 10x3/uL (1.5-8.4); %Basophils 0.2 % (0.0-2.0); %Eosinophils 0.3 % (0.0-6.0); %Lymphocytes 20.4 % (18.0-47.0); %Monocytes 4.1 % (0.0-10.0); %Neutrophils 74.1 % (40.0-75.0); Hemoglobin 10.7 g/dL (12.0-15.5); Mean Corpuscular HGB CONC 34.4 g/dL (32.0-36.0); Mean Corpuscular Hemoglobin 29.6 pg (27.0-33.0); Mean Corpuscular Volume 86.1 fl (81.6-98.3); Mean Platelet Volume 10.5 fl (7.4-10.4); Platelet Count 211 10x3/uL (150-450); RBC Distribution Width 14.1 % (11.5-14.5); Red Blood Cell (RBC) Count 3.61 10x6/uL (3.90-5.03); White Blood Cell (WBC) Count 16.4 10x3/uL (3.5-10.5)
[2022-11-07 06:47] LABS: ALT (SGPT) 8 U/L (8-55); AST (SGOT) 14 U/L (5-34); Albumin 3.4 g/dL (3.5-5.0); Alkaline Phosphatase 57 U/L (40-110); Anion Gap 17 mmol/L (10-20); BUN (Urea Nitrogen) 12 mg/dL (7.0-18.7); Bilirubin, Total 0.3 mg/dL (0.2-1.2); Calc. Creatinine Clearance 0 mL/min (70-130); Calcium 8.7 mg/dL (7.8-10.44); Carbon Dioxide 20 mmol/L (22-29); Chloride 106 mmol/L (98-107); Estimated GFR 124; Globulin 3.3 g/dL (2.4-3.5); Glucose 118 mg/dL (70-105); Lipase 12 U/L (8-78); Potassium 3.7 mmol/L (3.5-5.1); Protein, Total 6.7 g/dL (6.0-8.3); Sodium 139 mmol/L (136-145)
[2022-11-07 07:29] LABS: Bilirubin 1+ (Negative); Blood, Urine 25 (Negative); Clarity Cloudy (Clear); Glucose, Urine (Dipstick) Normal (Negative); Ketone, Urine 150 mg/dL (Negative); Leukocyte 100 (Negative); Nitrite Negative (Negative); Protein, Urine (Dipstick) 100 mg/dl (Neg-Trace); Specific Gravity, Urine 1.015 (1.005-1.030); pH, Urine 6.5 (5.0-9.0)
[2022-11-07 08:11] LABS: Bacteria/HPF 3+ HPF (None Seen); Mucous/LPF 1+ LPF (<2+)
[2022-11-07] MEDS ORDERED: Promethazine HCl 25 MG/ML VIAL IM SCH (09:15)
[2022-11-07] MEDS ORDERED: hydrALAZINE 20 MG/ML VIAL SLOW IVP PRN ×2 (09:23→09:30)
[2022-11-07] MEDS ORDERED: Ondansetron PF 4 MG/2 ML Vial IVP PRN (09:30)
[2022-11-07] MEDS ORDERED: Acetaminophen 500 MG TAB PO PRN (09:30)
[2022-11-07] MEDS ORDERED: cefTRIAXone\\ROCEPHIN 1 GM in Sodium Chloride 0.9% 100 ML IVPB SCH (09:45)
[2022-11-07 09:53] LABS: SARS-CoV-2 NAA Rapid Test Not Detected (NotDetected)
[2022-11-07 10:16] VITALS: BMI 47.5
[2022-11-07] MEDS: Lactated Ringer's 1,000 ML IV SCH ×2 (10:17→20:45)
[2022-11-07] MEDS ORDERED: Dextrose 5% in Water 1,000 ML IV PRN (10:40)
[2022-11-07] MEDS ORDERED: HumaLOG 300 UNITS/3 ML VIAL SC PRN (10:40)
[2022-11-07] MEDS ORDERED: Dextrose 50% Abboject 50 ML SYRINGE SLOW IVP PRN (10:40)
[2022-11-07] MEDS ORDERED: Famotidine/PF 20 mg/2ml Vial SLOW IVP SCH (12:15)
[2022-11-07] MEDS: Metoclopramide HCl 10 MG/2 ML VIAL IVP SCH ×2 (12:35→19:49)
[2022-11-08] MEDS ORDERED: Dextrose 50% Abboject 50 ML SYRINGE SLOW IVP PRN (00:05)
[2022-11-08] MEDS ORDERED: Dextrose 5% in Water 1,000 ML IV PRN (00:05)
[2022-11-08] MEDS ORDERED: Lactated Ringer's 300 ML IV SCH (00:15)
[2022-11-08] MEDS: Ondansetron PF 4 MG/2 ML Vial IVP SCH ×4 (00:44→12:23)
[2022-11-08] MEDS: Doxylamine 25 MG TAB PO SCH ×3 (00:52→17:47)
[2022-11-08] MEDS: Promethazine 25 MG TAB PO SCH ×3 (00:52→17:48)
[2022-11-08] MEDS: Meclizine HCl 12.5 MG TAB PO SCH ×3 (00:52→17:47)
[2022-11-08] MEDS: pyridOXINE 50 MG (B6) TAB PO SCH ×3 (00:53→17:47)
[2022-11-08] MEDS ORDERED: Ondansetron PF 4 MG/2 ML Vial IVP SCH (01:00)
[2022-11-08 02:47] LABS: #Monocytes 0.8 10x3/uL (0.0-1.1); #Neutrophils 12.8 10x3/uL (1.5-8.4); %Basophils 0.2 % (0.0-2.0); %Eosinophils 0.1 % (0.0-6.0); %Lymphocytes 16.6 % (18.0-47.0); %Monocytes 4.6 % (0.0-10.0); %Neutrophils 77.7 % (40.0-75.0); Hemoglobin 9.8 g/dL (12.0-15.5); Mean Corpuscular HGB CONC 33.9 g/dL (32.0-36.0); Mean Corpuscular Hemoglobin 29.6 pg (27.0-33.0); Mean Corpuscular Volume 87.3 fl (81.6-98.3); Platelet Count 200 10x3/uL (150-450); RBC Distribution Width 14.3 % (11.5-14.5); Red Blood Cell (RBC) Count 3.31 10x6/uL (3.90-5.03); White Blood Cell (WBC) Count 16.4 10x3/uL (3.5-10.5)
[2022-11-08 02:50] LABS: Lactic Acid 1.1 mmol/L (0.5-2.2)
[2022-11-08 02:52] LABS: Phosphorus 2.5 mg/dL (2.3-4.7)
[2022-11-08 02:54] LABS: Anion Gap 14 mmol/L (10-20); BUN (Urea Nitrogen) 10 mg/dL (7.0-18.7); Calc. Creatinine Clearance 248 mL/min (70-130); Calcium 8.4 mg/dL (7.8-10.44); Carbon Dioxide 19 mmol/L (22-29); Chloride 109 mmol/L (98-107); Estimated GFR 124; Glucose 150 mg/dL (70-105); Magnesium 1.9 mg/dL (1.6-2.6); Potassium 3.4 mmol/L (3.5-5.1); Sodium 139 mmol/L (136-145)
[2022-11-08] MEDS: Lactated Ringer's 1,000 ML IV SCH ×3 (03:00→21:15)
[2022-11-08] MEDS ORDERED: Sodium Bicarb 50 MEQ/50 ML Abboject 8.4% SYRINGE IVP SCH (06:00)
[2022-11-08] MEDS: Potassium Chloride 20 MEQ in Premix Bag 1 BAG IVPB SCH ×3 (06:36→15:30)
[2022-11-08] MEDS ORDERED: Lactated Ringer's 1,000 ML IV SCH ×2 (12:15→13:15)
[2022-11-08] MEDS ORDERED: Promethazine HCl 25 MG/ML VIAL IM PRN (12:42)
[2022-11-08] MEDS ORDERED: diphenhydrAMINE 50 MG/ML VIAL IVP SCH (13:00)
[2022-11-08] MEDS: cefTRIAXone\\ROCEPHIN 1 GM in Sodium Chloride 0.9% 100 ML IVPB SCH (14:07)
[2022-11-08] MEDS ORDERED: Potassium Chloride 20 MEQ in Premix Bag 1 BAG IVPB SCH (15:00)
[2022-11-08] MEDS: HumaLOG 300 UNITS/3 ML VIAL SC PRN (21:13)
[2022-11-08] MEDS: Famotidine/PF 20 mg/2ml Vial SLOW IVP SCH (21:14)
[2022-11-08] MEDS ORDERED: Multivitamins, Adult 10 ML, Folic Acid 1 MG, Thiamine HCl 100 MG in Dextrose 5 %-0.45 %... IV SCH (23:45)
[2022-11-09] MEDS: Ondansetron PF 4 MG/2 ML Vial IVP SCH ×6 (00:01→18:07)
[2022-11-09] MEDS: HumaLOG 300 UNITS/3 ML VIAL SC PRN ×6 (00:20→21:36)
[2022-11-09] MEDS: diphenhydrAMINE 50 MG/ML VIAL IVP SCH ×5 (00:26→21:39)
[2022-11-09] MEDS: Potassium Chloride 20 MEQ in Lactated Ringer's 1,000 ML IV SCH ×3 (01:06→18:07)
[2022-11-09] MEDS: Thiamine HCl 200 MG/2 ML VIAL SLOW IVP SCH (01:07)
[2022-11-09] MEDS: pyridOXINE 50 MG (B6) TAB PO SCH ×4 (01:22→21:45)
[2022-11-09] MEDS: Meclizine HCl 12.5 MG TAB PO SCH ×4 (01:22→21:45)
[2022-11-09] MEDS: Promethazine 25 MG TAB PO SCH ×2 (01:22→09:11)
[2022-11-09] MEDS: Doxylamine 25 MG TAB PO SCH ×4 (03:04→21:39)
[2022-11-09] MEDS: Famotidine/PF 20 mg/2ml Vial SLOW IVP SCH ×2 (09:14→21:38)
[2022-11-09] MEDS ORDERED: Metoclopramide HCl 10 MG/2 ML VIAL IVP PRN (09:26)
[2022-11-09] MEDS: cefTRIAXone\\ROCEPHIN 1 GM in Sodium Chloride 0.9% 100 ML IVPB SCH (10:08)
[2022-11-09] MEDS ORDERED: Potassium Chloride 20 MEQ TAB PO SCH (13:00)
[2022-11-09] MEDS ORDERED: Lantus 1000 UNITS/10 ML VIAL SC SCH (21:00)
[2022-11-09] MEDS: Betamet Acet/Betamet Na Ph 30 MG/5 ML VIAL IM SCH (21:40)
[2022-11-09] MEDS: Labetalol HCl 100 MG TAB PO SCH (21:44)
[2022-11-09] MEDS: Metoclopramide HCl 10 MG/2 ML VIAL IVP SCH (22:09)
[2022-11-10] MEDS: Ondansetron PF 4 MG/2 ML Vial IVP SCH ×4 (00:28→18:06)
[2022-11-10] MEDS: Folic Acid 1 MG in Syringe 0 ML SC SCH (00:30)
[2022-11-10] MEDS: Thiamine HCl 200 MG/2 ML VIAL SLOW IVP SCH (00:36)
[2022-11-10] MEDS: HumaLOG 300 UNITS/3 ML VIAL SC PRN ×6 (01:04→22:16)
[2022-11-10] MEDS: Potassium Chloride 20 MEQ in Lactated Ringer's 1,000 ML IV SCH ×3 (02:45→20:00)
[2022-11-10] MEDS: Metoclopramide HCl 10 MG/2 ML VIAL IVP SCH ×3 (05:58→22:09)
[2022-11-10] MEDS: Famotidine/PF 20 mg/2ml Vial SLOW IVP SCH ×2 (08:31→22:30)
[2022-11-10] MEDS: diphenhydrAMINE 50 MG/ML VIAL IVP SCH ×3 (08:32→22:11)
[2022-11-10] MEDS: Doxylamine 25 MG TAB PO SCH ×3 (08:32→22:05)
[2022-11-10] MEDS: Meclizine HCl 12.5 MG TAB PO SCH ×3 (08:32→22:05)
[2022-11-10] MEDS: pyridOXINE 50 MG (B6) TAB PO SCH ×3 (08:33→22:05)
[2022-11-10] MEDS: Labetalol HCl 100 MG TAB PO SCH ×2 (08:33→22:24)
[2022-11-10 09:31] LABS: #Monocytes 0.4 10x3/uL (0.0-1.1); #Neutrophils 14.5 10x3/uL (1.5-8.4); %Basophils 0.2 % (0.0-2.0); %Lymphocytes 11.3 % (18.0-47.0); %Monocytes 2.1 % (0.0-10.0); %Neutrophils 84.1 % (40.0-75.0); Hemoglobin 10.1 g/dL (12.0-15.5); Mean Corpuscular HGB CONC 33.6 g/dL (32.0-36.0); Mean Corpuscular Hemoglobin 29.7 pg (27.0-33.0); Mean Corpuscular Volume 88.5 fl (81.6-98.3); Mean Platelet Volume 10.1 fl (7.4-10.4); Platelet Count 206 10x3/uL (150-450); RBC Distribution Width 14.4 % (11.5-14.5); White Blood Cell (WBC) Count 17.3 10x3/uL (3.5-10.5)
[2022-11-10 09:46] LABS: ALT (SGPT) 10 U/L (8-55); AST (SGOT) 10 U/L (5-34); Albumin 3.3 g/dL (3.5-5.0); Alkaline Phosphatase 53 U/L (40-110); Anion Gap 18 mmol/L (10-20); BUN (Urea Nitrogen) 7 mg/dL (7.0-18.7); Bilirubin, Total 0.3 mg/dL (0.2-1.2); Calc. Creatinine Clearance 229 mL/min (70-130); Calcium 8.8 mg/dL (7.8-10.44); Carbon Dioxide 15 mmol/L (22-29); Chloride 107 mmol/L (98-107); Estimated GFR 122; Globulin 3.5 g/dL (2.4-3.5); Glucose 222 mg/dL (70-105); Potassium 3.7 mmol/L (3.5-5.1); Protein, Total 6.8 g/dL (6.0-8.3); Sodium 136 mmol/L (136-145)
[2022-11-10] MEDS: cefTRIAXone\\ROCEPHIN 1 GM in Sodium Chloride 0.9% 100 ML IVPB SCH (10:27)
[2022-11-10 14:25] LABS: Hemoglobin A1c 6.6 % (4.0-6.0)
[2022-11-10] MEDS ORDERED: Labetalol HCl 100 MG/20 ML VIAL SLOW IVP PRN (19:01)
[2022-11-10] MEDS ORDERED: Lantus 1000 UNITS/10 ML VIAL SC SCH (21:00)
[2022-11-10] MEDS: Lantus 1000 UNITS/10 ML VIAL SC SCH (22:14)
[2022-11-10] MEDS: Betamet Acet/Betamet Na Ph 30 MG/5 ML VIAL IM SCH (22:32)
[2022-11-11] MEDS: Ondansetron PF 4 MG/2 ML Vial IVP SCH ×2 (00:52→06:09)
[2022-11-11] MEDS: Folic Acid 1 MG in Syringe 0 ML SC SCH (00:53)
[2022-11-11] MEDS: Thiamine HCl 200 MG/2 ML VIAL SLOW IVP SCH (00:55)
[2022-11-11] MEDS: Potassium Chloride 20 MEQ in Lactated Ringer's 1,000 ML IV SCH ×4 (03:43→23:07)
[2022-11-11] MEDS: HumaLOG 300 UNITS/3 ML VIAL SC PRN ×6 (03:44→21:09)
[2022-11-11] MEDS: Metoclopramide HCl 10 MG/2 ML VIAL IVP SCH ×3 (06:09→21:10)
[2022-11-11] MEDS: Labetalol HCl 100 MG TAB PO SCH ×3 (06:15→22:10)
[2022-11-11] MEDS: Famotidine 20 MG TAB PO SCH ×2 (07:57→21:06)
[2022-11-11] MEDS: Doxylamine 25 MG TAB PO SCH ×3 (07:57→21:06)
[2022-11-11] MEDS: pyridOXINE 50 MG (B6) TAB PO SCH ×3 (07:57→21:07)
[2022-11-11] MEDS: diphenhydrAMINE 25 MG CAP PO SCH ×3 (07:58→21:09)
[2022-11-11] MEDS: Ondansetron ODT 8 MG TAB PO SCH ×3 (08:06→21:06)
[2022-11-11] MEDS: Meclizine HCl 12.5 MG TAB PO SCH ×3 (08:23→21:06)
[2022-11-11] MEDS: cefTRIAXone\\ROCEPHIN 1 GM in Sodium Chloride 0.9% 100 ML IVPB SCH (09:17)
[2022-11-11] MEDS: Lantus 1000 UNITS/10 ML VIAL SC SCH (21:10)
[2022-11-12] MEDS: HumaLOG 300 UNITS/3 ML VIAL SC PRN ×5 (00:19→21:07)
[2022-11-12 03:37] LABS: #Monocytes 0.9 10x3/uL (0.0-1.1); #Neutrophils 8.6 10x3/uL (1.5-8.4); %Basophils 0.1 % (0.0-2.0); %Eosinophils 0.1 % (0.0-6.0); %Lymphocytes 19.6 % (18.0-47.0); %Monocytes 7.1 % (0.0-10.0); %Neutrophils 71.7 % (40.0-75.0); Mean Corpuscular HGB CONC 33.6 g/dL (32.0-36.0); Mean Corpuscular Hemoglobin 29.1 pg (27.0-33.0); Mean Corpuscular Volume 86.7 fl (81.6-98.3); Mean Platelet Volume 10.2 fl (7.4-10.4); Platelet Count 183 10x3/uL (150-450); RBC Distribution Width 14.4 % (11.5-14.5); Red Blood Cell (RBC) Count 3.09 10x6/uL (3.90-5.03)
[2022-11-12 03:53] LABS: Anion Gap 12 mmol/L (10-20); BUN (Urea Nitrogen) 6 mg/dL (7.0-18.7); Calc. Creatinine Clearance 244 mL/min (70-130); Calcium 8.3 mg/dL (7.8-10.44); Carbon Dioxide 20 mmol/L (22-29); Chloride 105 mmol/L (98-107); Estimated GFR 123; Glucose 237 mg/dL (70-105); Potassium 3.4 mmol/L (3.5-5.1); Sodium 134 mmol/L (136-145)
[2022-11-12] MEDS: Labetalol HCl 100 MG TAB PO SCH ×3 (06:02→21:02)
[2022-11-12] MEDS: Metoclopramide HCl 10 MG/2 ML VIAL IVP SCH ×3 (06:03→21:05)
[2022-11-12] MEDS: Doxylamine 25 MG TAB PO SCH ×3 (09:04→21:05)
[2022-11-12] MEDS: Ondansetron ODT 8 MG TAB PO SCH ×3 (09:05→21:05)
[2022-11-12] MEDS: Famotidine 20 MG TAB PO SCH ×2 (09:05→21:04)
[2022-11-12] MEDS: pyridOXINE 50 MG (B6) TAB PO SCH ×3 (09:05→21:03)
[2022-11-12] MEDS: diphenhydrAMINE 25 MG CAP PO SCH ×3 (09:05→21:03)
[2022-11-12] MEDS: Meclizine HCl 12.5 MG TAB PO SCH ×3 (09:05→21:03)
[2022-11-12] MEDS: cefTRIAXone\\ROCEPHIN 1 GM in Sodium Chloride 0.9% 100 ML IVPB SCH (09:06)
[2022-11-12] MEDS: HumaLOG 300 UNITS/3 ML VIAL SC SCH (17:26)
[2022-11-12] MEDS ORDERED: Lantus 1000 UNITS/10 ML VIAL SC SCH (21:00)
[2022-11-13] MEDS: HumaLOG 300 UNITS/3 ML VIAL SC PRN ×3 (00:13→09:39)
[2022-11-13] MEDS: Labetalol HCl 100 MG TAB PO SCH (05:39)
[2022-11-13] MEDS: Metoclopramide HCl 10 MG/2 ML VIAL IVP SCH (05:39)
[2022-11-13] MEDS: Ondansetron ODT 8 MG TAB PO SCH (07:39)
[2022-11-13] MEDS: Meclizine HCl 12.5 MG TAB PO SCH (07:39)
[2022-11-13] MEDS: HumaLOG 300 UNITS/3 ML VIAL SC SCH (07:39)
[2022-11-13] MEDS: diphenhydrAMINE 25 MG CAP PO SCH (07:39)
[2022-11-13] MEDS: Famotidine 20 MG TAB PO SCH (07:39)
[2022-11-13] MEDS: pyridOXINE 50 MG (B6) TAB PO SCH (08:01)
[2022-11-13] MEDS: Doxylamine 25 MG TAB PO SCH (08:01)
[2022-11-13 08:43] VITALS: BP 129/85; TEMP 98.5
[2022-11-13] MEDS: cefTRIAXone\\ROCEPHIN 1 GM in Sodium Chloride 0.9% 100 ML IVPB SCH (09:38)
== END 2022-11-13 11:30 | disposition home or self-care (01) ==
LOC: CSHERS 05:33 → CSHLD 09:06 → CSHANTE 20:06
PROVIDERS: ADMIT Family Medicine; ATTEND Hospitalist
DX: O21.1 Hyperemesis gravidarum with metabolic disturbance (principal); O23.42 Unspecified infection of urinary tract in pregnancy, second trimester; O24.112 Pre-existing type 2 diabetes mellitus, in pregnancy, second trimester; N39.0 Urinary tract infection, site not specified; O99.282 Endocrine, nutritional and metabolic diseases complicating pregnancy, second trimester; O99.412 Diseases of the circulatory system complicating pregnancy, second trimester; O14.92 Unspecified pre-eclampsia, second trimester; O99.012 Anemia complicating pregnancy, second trimester; D64.9 Anemia, unspecified; R00.0 Tachycardia, unspecified; O99.212 Obesity complicating pregnancy, second trimester; E66.01 Morbid (severe) obesity due to excess calories; D72.829 Elevated white blood cell count, unspecified; Z3A.21 21 weeks gestation of pregnancy; Z79.899 Other long term (current) drug therapy; Z79.4 Long term (current) use of insulin
CPT/HCPCS: 36415; 36416; 76705; 76819; 80048; 80053; 81003; 81015; 82010; 82570; 83036; 83605; 83690; 83735; 84100; 84156; 85025; 87040; 87086; 96361; 96372; 96374; 96375; 96376; 99285; G0378; J0696; J0702; J1200; J1815; J2405; J2550; J2765; J3411; J3480; J3490; J7120; Q0162; Q0169; S0028

== ENCOUNTER 2022-11-22 11:56 | Day surgery (SDC) | payer SELFPAY ==
[2022-11-22 12:37] VITALS: BMI 47.5
== END 2022-11-22 15:40 | disposition home health service (06) ==
LOC: CSHLD/OP 11:56
PROVIDERS: ATTEND Family Medicine
DX: Z36.89 Encounter for other specified antenatal screening (principal)
CPT/HCPCS: 76819; 99282

== ENCOUNTER 2022-11-28 12:24 | Day surgery (SDC) | payer MEDICAID, SELFPAY ==
[2022-11-28] MEDS ORDERED: Terbutaline Sulfate 1 MG/ML VIAL ONE (14:05)
== END 2022-11-28 17:30 | disposition home or self-care (01) ==
LOC: CSHLD/OP 12:24
PROVIDERS: ATTEND Family Medicine
DX: Z36.89 Encounter for other specified antenatal screening (principal)
CPT/HCPCS: 59025; 76815; 76819; 99282; J3105

== ENCOUNTER 2022-12-01 14:48 | Day surgery (SDC) | payer OTHER | END 2022-12-01 17:50 | disposition home or self-care (01) | LOC: CSHLD/OP 14:48 | PROVIDERS: ATTEND Family Medicine | DX: Z36.89 Encounter for other specified antenatal screening (principal); O13.9 Gestational [pregnancy-induced] hypertension without significant proteinuria, unspecified trimester; Z3A.00 Weeks of gestation of pregnancy not specified | CPT/HCPCS: 59025; 76819 ==

== ENCOUNTER 2022-12-05 12:06 | Day surgery (SDC) | payer OTHER, SELFPAY ==
[2022-12-05 12:55] VITALS: BMI 47.5
== END 2022-12-05 20:22 | disposition home or self-care (01) ==
LOC: CSHLD/OP 12:06
PROVIDERS: ATTEND Family Medicine
DX: Z36.89 Encounter for other specified antenatal screening (principal); O24.419 Gestational diabetes mellitus in pregnancy, unspecified control; Z3A.36 36 weeks gestation of pregnancy
CPT/HCPCS: 76815; 76819

== ENCOUNTER 2022-12-08 15:03 | Day surgery (SDC) | payer MEDICAID, OTHER | END 2022-12-08 17:00 | disposition home health service (06) | LOC: CSHLD/OP 15:03 | PROVIDERS: ATTEND Family Medicine | DX: Z36.89 Encounter for other specified antenatal screening (principal) | CPT/HCPCS: 59025; 76819 ==

== ENCOUNTER 2022-12-12 16:17 | Day surgery (SDC) | payer SELFPAY | END 2022-12-12 20:17 | disposition home or self-care (01) | LOC: CSHLD/OP 16:17 | PROVIDERS: ATTEND Family Medicine | DX: Z36.89 Encounter for other specified antenatal screening (principal); O24.419 Gestational diabetes mellitus in pregnancy, unspecified control; Z3A.00 Weeks of gestation of pregnancy not specified | CPT/HCPCS: 59025; 76819; 99281 ==

== ENCOUNTER 2022-12-15 15:04 | Day surgery (SDC) | payer OTHER ==
[2022-12-15 16:46] VITALS: BMI 47.6
== END 2022-12-15 17:40 | disposition home or self-care (01) ==
LOC: CSHLD/OP 15:04
PROVIDERS: ATTEND Family Medicine
DX: Z36.89 Encounter for other specified antenatal screening (principal)
CPT/HCPCS: 59025; 76819; 99282

== ENCOUNTER 2022-12-22 14:59 | Inpatient (IN) | payer MEDICAID, OTHER, SELFPAY ==
[2022-12-22 17:15] VITALS: BMI 47.8
[2022-12-22] MEDS ORDERED: Ibuprofen 800 MG TAB PO PRN (19:00)
[2022-12-22] MEDS ORDERED: HYDROcodone/Acetaminophen 5/325 mg Tablet PO PRN (19:00)
[2022-12-22] MEDS ORDERED: Promethazine HCl 25 MG/ML VIAL IM PRN (19:00)
[2022-12-22] MEDS ORDERED: NS w/ Oxytocin 30 units 500 ML IV SCH ×3 (19:00)
[2022-12-22] MEDS ORDERED: Carboprost 250 MCG/ML AMP IM PRN (19:00)
[2022-12-22] MEDS ORDERED: Lactated Ringer's 1,000 ML IV SCH (19:00)
[2022-12-22] MEDS ORDERED: Ondansetron PF 4 MG/2 ML Vial IVP PRN (19:00)
[2022-12-22] MEDS ORDERED: Acetaminophen 500 MG TAB PO PRN (19:00)
[2022-12-22] MEDS ORDERED: Misoprostol 100 MCG TAB VAG SCH (19:00)
[2022-12-22] MEDS ORDERED: Lidocaine 1% (PF) 30 ML VIAL SC PRN (19:00)
[2022-12-22] MEDS ORDERED: Tranexamic Acid 1,000 MG/10 ML VIAL IVP PRN (19:00)
[2022-12-22] MEDS ORDERED: Fentanyl 100 MCG/2 ML VIAL SLOW IVP PRN (19:00)
[2022-12-22] MEDS ORDERED: Methylergonovine 0.2 MG/ML VIAL IM PRN (19:00)
[2022-12-22] MEDS ORDERED: Misoprostol 200 MCG TAB PR PRN (19:00)
[2022-12-22] MEDS ORDERED: Diphenoxylate HCl/Atropine Tablet PO PRN (19:00)
[2022-12-22] MEDS ORDERED: hydrALAZINE 20 MG/ML VIAL SLOW IVP PRN (19:00)
[2022-12-22] MEDS ORDERED: fentaNYL 50 mcg/mL 1 mL Vial SLOW IVP PRN (19:15)
[2022-12-22 19:42] LABS: Hemoglobin 11.5 g/dL (12.0-15.5); Mean Corpuscular Hemoglobin 29.5 pg (27.0-33.0); Mean Corpuscular Volume 89.5 fl (81.6-98.3); Mean Platelet Volume 10.7 fl (7.4-10.4); Platelet Count 172 10x3/uL (150-450); RBC Distribution Width 14.6 % (11.5-14.5); White Blood Cell (WBC) Count 12.4 10x3/uL (3.5-10.5)
[2022-12-22 20:08] LABS: HBSAg Index 0.11 S/CO (0-0.99); Hep B Surf Ag - L&D Non-Reactive S/CO (NonReactive)
[2022-12-22 20:18] LABS: Syphilis Antibody Nonreactive (Nonreactive); Syphilis Antibody Index 0.06 S/CO (<1.00 Non-Reactive)
[2022-12-22] MEDS: Lantus 1000 UNITS/10 ML VIAL SC SCH (21:15)
[2022-12-22] MEDS ORDERED: Bicitra 30 ML UDCUP PO PRN (23:06)
[2022-12-22] MEDS ORDERED: Famotidine/PF 20 mg/2ml Vial SLOW IVP PRN (23:06)
[2022-12-22] MEDS ORDERED: CEFAZOLIN 2 GM in Sodium Chloride 0.9% 100 ML IVPB SCH (23:15)
[2022-12-22] MEDS ORDERED: Azithromycin 500 MG in Sodium Chloride 0.9% 250 ML 250 ML IVPB SCH (23:15)
[2022-12-22] MEDS: Labetalol HCl 100 MG TAB PO SCH (23:58)
[2022-12-23] MEDS ORDERED: Oxytocin 10 UNITS/ML VIAL ONE (00:43)
[2022-12-23] MEDS ORDERED: Morphine PF 10 MG/10 ML VIAL ONE (00:44)
[2022-12-23] MEDS ORDERED: PHENYLEPHRINE-NS 100 MCG/ML 10 ML SYRINGE ONE (00:44)
[2022-12-23] MEDS ORDERED: Ondansetron PF 4 MG/2 ML Vial ONE (01:12)
[2022-12-23] MEDS ORDERED: Naloxone HCl 0.4 mg/ml Vial IV PRN (01:46)
[2022-12-23] MEDS ORDERED: Promethazine HCl 25 MG SUPP PR PRN (01:46)
[2022-12-23] MEDS ORDERED: Ondansetron HCl/PF 4 MG/2 ML Vial IVP PRN (01:46)
[2022-12-23] MEDS ORDERED: Ondansetron PF 4 MG/2 ML Vial IVP PRN (01:46)
[2022-12-23] MEDS ORDERED: Naloxone HCl 0.4 mg/ml Vial IVP PRN ×2 (01:46)
[2022-12-23] MEDS ORDERED: diphenhydrAMINE 50 MG/ML VIAL IVP PRN (01:46)
[2022-12-23] MEDS ORDERED: Fentanyl 100 MCG/2 ML VIAL SLOW IVP PRN (01:46)
[2022-12-23] MEDS ORDERED: Meperidine HCl/PF 25 MG/ML VIAL SLOW IVP PRN (01:46)
[2022-12-23] MEDS ORDERED: Promethazine HCl 25 MG/ML VIAL IM PRN (01:46)
[2022-12-23] MEDS ORDERED: Moisturizing Cream (Eucerin) 113 GM JAR TOP PRN (01:46)
[2022-12-23] MEDS ORDERED: Ketorolac Tromethamine 30 MG/ML VIAL IVP PRN (01:46)
[2022-12-23] MEDS ORDERED: Communication Order-Pharmacy FS SCH (02:00)
[2022-12-23] MEDS ORDERED: Ketorolac Tromethamine 30 MG/ML VIAL IVP SCH (02:00)
[2022-12-23] MEDS ORDERED: Simethicone Chewable 80 MG TAB PO PRN (04:05)
[2022-12-23] MEDS ORDERED: Bisacodyl 10 MG SUPP PR PRN (04:05)
[2022-12-23] MEDS ORDERED: Boostrix 0.5 ML (Tdap) VIAL (>/=7 yrs of age) IM ONE (04:05)
[2022-12-23] MEDS ORDERED: diphenhydrAMINE 25 MG CAP PO PRN (04:05)
[2022-12-23] MEDS ORDERED: Lanolin Ointment 7 GM TUBE TOP PRN (04:05)
[2022-12-23] MEDS ORDERED: hydrALAZINE 20 MG/ML VIAL SLOW IVP PRN (04:05)
[2022-12-23] MEDS ORDERED: Fluconazole 100 MG TAB PO SCH (04:15)
[2022-12-23] MEDS: Promethazine HCl 25 MG/ML VIAL IM PRN (04:16)
[2022-12-23] MEDS: CEFAZOLIN 2 GM in Sodium Chloride 0.9% 100 ML IVPB SCH ×3 (05:36→21:24)
[2022-12-23] MEDS: metroNIDAZOLE 500 MG in Premix Bag 1 BAG IVPB SCH ×3 (06:18→22:13)
[2022-12-23] MEDS: Labetalol HCl 100 MG TAB PO SCH ×3 (07:37→21:10)
[2022-12-23] MEDS: Ferrous Sulfate 325 MG TAB PO SCH (07:38)
[2022-12-23] MEDS: Ketorolac Tromethamine 30 MG/ML VIAL IVP SCH ×3 (08:34→17:49)
[2022-12-23] MEDS: Prenatal Vitamin 1 TAB PO SCH (09:54)
[2022-12-23] MEDS: Docusate 100 MG CAP PO SCH ×2 (09:54→21:24)
[2022-12-23] MEDS: Ondansetron PF 4 MG/2 ML Vial IVP PRN (09:57)
[2022-12-23] MEDS ORDERED: fentaNYL 50 mcg/mL 1 mL Vial SLOW IVP PRN (14:00)
[2022-12-23] MEDS ORDERED: HYDROcodone/Acetaminophen 5/325 mg Tablet PO PRN (14:00)
[2022-12-23] MEDS ORDERED: Meperidine HCl/PF 25 MG/ML VIAL IM PRN (14:00)
[2022-12-23] MEDS ORDERED: Diphenoxylate HCl/Atropine Tablet PO PRN (14:00)
[2022-12-23] MEDS ORDERED: metFORMIN 500 MG TAB PO SCH (17:00)
[2022-12-23] MEDS ORDERED: HumaLOG 300 UNITS/3 ML VIAL SC SCH (21:00)
[2022-12-23] MEDS: Lantus 1000 UNITS/10 ML VIAL SC SCH (21:23)
[2022-12-23] MEDS: HYDROcodone/Acetaminophen 5/325 mg Tablet PO PRN (22:57)
[2022-12-24] MEDS: Ketorolac Tromethamine 30 MG/ML VIAL IVP SCH (01:06)
[2022-12-24 03:20] LABS: Hemoglobin 9.1 g/dL (12.0-15.5); Mean Corpuscular HGB CONC 33.2 g/dL (32.0-36.0); Mean Corpuscular Hemoglobin 28.8 pg (27.0-33.0); Mean Corpuscular Volume 86.7 fl (81.6-98.3); Mean Platelet Volume 10.6 fl (7.4-10.4); Platelet Count 150 10x3/uL (150-450); RBC Distribution Width 14.5 % (11.5-14.5); Red Blood Cell (RBC) Count 3.16 10x6/uL (3.90-5.03); White Blood Cell (WBC) Count 13.2 10x3/uL (3.5-10.5)
[2022-12-24] MEDS: Labetalol HCl 100 MG TAB PO SCH ×3 (05:21→22:25)
[2022-12-24] MEDS: Ibuprofen 800 MG TAB PO SCH ×3 (05:21→22:25)
[2022-12-24] MEDS: HYDROcodone/Acetaminophen 5/325 mg Tablet PO PRN ×5 (05:22→21:05)
[2022-12-24] MEDS: CEFAZOLIN 2 GM in Sodium Chloride 0.9% 100 ML IVPB SCH ×3 (05:27→21:08)
[2022-12-24] MEDS: metroNIDAZOLE 500 MG in Premix Bag 1 BAG IVPB SCH ×2 (06:17→14:16)
[2022-12-24] MEDS: Ferrous Sulfate 325 MG TAB PO SCH ×3 (07:05→21:07)
[2022-12-24] MEDS: HumaLOG 300 UNITS/3 ML VIAL SC SCH ×3 (07:44→17:01)
[2022-12-24] MEDS: Prenatal Vitamin 1 TAB PO SCH (07:44)
[2022-12-24] MEDS: Docusate 100 MG CAP PO SCH ×2 (07:44→21:07)
[2022-12-24] MEDS ORDERED: Dextrose 50% Abboject 50 ML SYRINGE SLOW IVP PRN (08:27)
[2022-12-24] MEDS ORDERED: Dextrose 5% in Water 1,000 ML IV PRN (08:27)
[2022-12-24] MEDS: Ondansetron PF 4 MG/2 ML Vial IVP PRN (18:26)
[2022-12-24] MEDS: Lantus 1000 UNITS/10 ML VIAL SC SCH (21:11)
[2022-12-25] MEDS: metroNIDAZOLE 500 MG in Premix Bag 1 BAG IVPB SCH ×2 (00:53→09:40)
[2022-12-25] MEDS: HYDROcodone/Acetaminophen 5/325 mg Tablet PO PRN ×5 (00:54→22:48)
[2022-12-25] MEDS: Ondansetron PF 4 MG/2 ML Vial IVP PRN ×3 (03:20→17:05)
[2022-12-25] MEDS ORDERED: Sodium Chloride 0.9% 0 ML ONE (06:24)
[2022-12-25] MEDS: CEFAZOLIN 2 GM in Sodium Chloride 0.9% 100 ML IVPB SCH ×2 (06:36→15:38)
[2022-12-25] MEDS: Ibuprofen 800 MG TAB PO SCH ×3 (06:38→21:54)
[2022-12-25] MEDS: Labetalol HCl 100 MG TAB PO SCH ×3 (06:38→21:52)
[2022-12-25] MEDS: HumaLOG 300 UNITS/3 ML VIAL SC SCH ×3 (07:46→17:00)
[2022-12-25] MEDS: Promethazine HCl 25 MG/ML VIAL IM PRN (09:50)
[2022-12-25] MEDS: Ferrous Sulfate 325 MG TAB PO SCH ×2 (11:26→21:52)
[2022-12-25] MEDS: Docusate 100 MG CAP PO SCH ×2 (11:26→21:52)
[2022-12-25] MEDS: Prenatal Vitamin 1 TAB PO SCH (11:26)
[2022-12-25] MEDS: Metoclopramide HCl 10 MG/2 ML VIAL IVP SCH ×2 (15:37→20:11)
[2022-12-25] MEDS: HumaLOG 300 UNITS/3 ML VIAL SC PRN (20:22)
[2022-12-25] MEDS: Lantus 1000 UNITS/10 ML VIAL SC SCH (21:55)
[2022-12-26] MEDS: Metoclopramide HCl 10 MG/2 ML VIAL IVP SCH ×3 (02:27→11:38)
[2022-12-26] MEDS: Ibuprofen 800 MG TAB PO SCH ×2 (05:56→14:53)
[2022-12-26] MEDS: Labetalol HCl 100 MG TAB PO SCH ×2 (05:56→08:28)
[2022-12-26] MEDS: HumaLOG 300 UNITS/3 ML VIAL SC PRN ×2 (06:04→09:50)
[2022-12-26] MEDS: metroNIDAZOLE 500 MG in Premix Bag 1 BAG IVPB SCH (07:24)
[2022-12-26 07:26] VITALS: TEMP 98.2
[2022-12-26] MEDS: HumaLOG 300 UNITS/3 ML VIAL SC SCH ×2 (07:45→11:34)
[2022-12-26] MEDS ORDERED: Labetalol HCl 100 MG TAB PO SCH (08:00)
[2022-12-26] MEDS: Ferrous Sulfate 325 MG TAB PO SCH (08:27)
[2022-12-26] MEDS: Prenatal Vitamin 1 TAB PO SCH (08:27)
[2022-12-26] MEDS: Docusate 100 MG CAP PO SCH (08:28)
[2022-12-26] MEDS: HYDROcodone/Acetaminophen 5/325 mg Tablet PO PRN ×2 (08:32→12:28)
[2022-12-26 08:41] VITALS: BP 123/61
[2022-12-26] MEDS ORDERED: Labetalol HCl 200 MG TAB PO SCH (14:00)
== END 2022-12-26 16:35 | disposition home or self-care (01) | DRG 786 ==
LOC: CSHLD/OP 14:59 → CSHLD 17:28 → CSHPP 12-23 04:50
PROVIDERS: ADMIT Family Medicine; ATTEND Family Medicine
PROC: 10D00Z1 Extraction of Products of Conception, Low, Open Approach (ICD-10-PCS; principal; 2022-12-23)
PROC: 3E0P05Z Introduction of Adhesion Barrier into Female Reproductive, Open Approach (ICD-10-PCS; 2022-12-23)
DX: O24.12 Pre-existing type 2 diabetes mellitus, in childbirth (principal); O60.14X0 Preterm labor third trimester with preterm delivery third trimester, not applicable or unspecified; O99.214 Obesity complicating childbirth; E66.9 Obesity, unspecified; O14.94 Unspecified pre-eclampsia, complicating childbirth; O76 Abnormality in fetal heart rate and rhythm complicating labor and delivery; Z3A.36 36 weeks gestation of pregnancy; Z37.0 Single live birth; Z79.4 Long term (current) use of insulin; Z79.899 Other long term (current) drug therapy
CPT/HCPCS: 36415; 36416; 51702; 59025; 76819; 85027; 86780; 86850; 86900; 86901; 87340; 99285; J1815; J1885; J2274; J2405; J2550; J2590; J2765; J3490

== ENCOUNTER 2023-10-20 13:31 | Emergency (ER) | payer SELFPAY ==
[2023-10-20] MEDS ORDERED: Morphine 4 MG/ML VIAL ONE (15:21)
[2023-10-20] MEDS ORDERED: Ondansetron PF 4 MG/2 ML Vial ONE (15:21)
[2023-10-20 15:26] LABS: #Basophils 0.1 10x3/uL (0.0-0.2); #Eosinphils 0.1 10x3/uL (0.0-0.5); #Monocytes 0.6 10x3/uL (0.0-1.1); #Neutrophils 6.8 10x3/uL (1.5-8.4); %Basophils 0.5 % (0.0-2.0); %Eosinophils 0.7 % (0.0-6.0); %Lymphocytes 27.5 % (18.0-47.0); %Monocytes 5.3 % (0.0-10.0); %Neutrophils 65.5 % (40.0-75.0); Hematocrit 45.9 % (34.9-44.5); Hemoglobin 15.8 g/dL (12.0-15.5); Mean Corpuscular HGB CONC 34.4 g/dL (32.0-36.0); Mean Corpuscular Hemoglobin 29.9 pg (27.0-33.0); Mean Corpuscular Volume 86.8 fl (81.6-98.3); Mean Platelet Volume 10.7 fl (7.4-10.4); Platelet Count 204 10x3/uL (150-450); RBC Distribution Width 14.7 % (11.5-14.5); Red Blood Cell (RBC) Count 5.29 10x6/uL (3.90-5.03); White Blood Cell (WBC) Count 10.4 10x3/uL (3.5-10.5)
[2023-10-20 15:36] LABS: BHCG - Serum Negative (NEGATIVE); Pregs Control Background? CLEAR/WHITE (CLR/WHITE); Pregs Control Bar Appear? YES (CONTROL BAR)
[2023-10-20 15:41] LABS: ALT (SGPT) 66 U/L (8-55); AST (SGOT) 57 U/L (5-34); Albumin 4.9 g/dL (3.5-5.0); Alkaline Phosphatase 70 U/L (40-110); Anion Gap 15 mmol/L (10-20); BUN (Urea Nitrogen) 11 mg/dL (7.0-18.7); Bilirubin, Total 0.8 mg/dL (0.2-1.2); Calc. Creatinine Clearance 0 mL/min (70-130); Calcium 9.8 mg/dL (7.8-10.44); Carbon Dioxide 26 mmol/L (22-29); Chloride 102 mmol/L (98-107); Estimated GFR 89; Globulin 4.5 g/dL (2.4-3.5); Glucose 173 mg/dL (70-105); Lipase 20 U/L (8-78); Potassium 4.1 mmol/L (3.5-5.1); Protein, Total 9.4 g/dL (6.0-8.3); Sodium 139 mmol/L (136-145)
[2023-10-20 16:10] LABS: Bilirubin Neg (Negative); Blood, Urine 150 (Negative); Clarity Slightly Cloudy (Clear); Glucose, Urine (Dipstick) >=1000 mg/dL (Negative); Ketone, Urine 50 mg/dL (Negative); Leukocyte Negative (Negative); Nitrite Negative (Negative); Protein, Urine (Dipstick) 100 mg/dl (Neg-Trace); Urobilinogen Normal mg/dL (Less than 2); pH, Urine 6.5 (5.0-9.0)
[2023-10-20 16:23] LABS: CAUTI Indications for Culture Pelvic or flank pain; Squamous Epithelial 0-3 HPF (0-3); WBC/HPF 0-3 HPF (0-3)
[2023-10-20 16:24] LABS: Bacteria/HPF None Seen HPF (None Seen); Urine Culture Reflex No No
[2023-10-20] MEDS ORDERED: Metoclopramide HCl 10 MG (2 mL) VIAL ONE (17:39)
== END 2023-10-20 19:10 | disposition home or self-care (01) ==
LOC: CSHERS 13:31
DX: R11.2 Nausea with vomiting, unspecified (principal); R10.10 Upper abdominal pain, unspecified; E11.9 Type 2 diabetes mellitus without complications
CPT/HCPCS: 36416; 74177; 80053; 81001; 83690; 84703; 85025; 96361; 96374; 96375; J2270; J2405; J2765

== ENCOUNTER 2023-10-21 22:19 | Observation (INO) | payer SELFPAY ==
[2023-10-21] MEDS ORDERED: Ondansetron PF 4 MG/2 ML Vial ONE (23:02)
[2023-10-21] MEDS ORDERED: Diazepam 10 MG/2 ML SYRINGE ONE (23:02)
[2023-10-21] MEDS ORDERED: Famotidine/PF 20 mg/2ml Vial ONE (23:03)
[2023-10-21 23:21] LABS: #Basophils 0.1 10x3/uL (0.0-0.2); #Eosinphils 0.1 10x3/uL (0.0-0.5); #Monocytes 0.5 10x3/uL (0.0-1.1); %Basophils 0.5 % (0.0-2.0); %Eosinophils 0.6 % (0.0-6.0); %Lymphocytes 21.3 % (18.0-47.0); %Monocytes 4.7 % (0.0-10.0); %Neutrophils 72.5 % (40.0-75.0); Hemoglobin 15.1 g/dL (12.0-15.5); Mean Corpuscular HGB CONC 34.3 g/dL (32.0-36.0); Mean Corpuscular Volume 87.5 fl (81.6-98.3); Mean Platelet Volume 10.2 fl (7.4-10.4); Platelet Count 210 10x3/uL (150-450); RBC Distribution Width 14.3 % (11.5-14.5); Red Blood Cell (RBC) Count 5.03 10x6/uL (3.90-5.03)
[2023-10-21] MEDS ORDERED: Lorazepam 2 MG/ML VIAL ONE (23:33)
[2023-10-21 23:34] LABS: ALT (SGPT) 52 U/L (8-55); AST (SGOT) 34 U/L (5-34); Albumin 4.4 g/dL (3.5-5.0); Alkaline Phosphatase 62 U/L (40-110); Anion Gap 19 mmol/L (10-20); BUN (Urea Nitrogen) 8 mg/dL (7.0-18.7); Bilirubin, Total 0.7 mg/dL (0.2-1.2); Calc. Creatinine Clearance 0 mL/min (70-130); Calcium 9.5 mg/dL (7.8-10.44); Carbon Dioxide 21 mmol/L (22-29); Chloride 104 mmol/L (98-107); Estimated GFR 96; Globulin 4.1 g/dL (2.4-3.5); Glucose 130 mg/dL (70-105); Lipase 16 U/L (8-78); Potassium 3.6 mmol/L (3.5-5.1); Protein, Total 8.5 g/dL (6.0-8.3); Sodium 140 mmol/L (136-145)
[2023-10-21] MEDS ORDERED: diphenhydrAMINE 50 MG/ML VIAL ONE (23:34)
[2023-10-22] MEDS ORDERED: HumaLOG 300 UNITS/3 ML VIAL SC PRN (01:30)
[2023-10-22] MEDS ORDERED: Senokot S 8.6-50 MG TAB PO PRN (01:30)
[2023-10-22] MEDS ORDERED: Dextrose 50% Abboject 50 ML SYRINGE SLOW IVP PRN (01:30)
[2023-10-22] MEDS ORDERED: Glucagon 1 MG/ML KIT IM PRN (01:30)
[2023-10-22] MEDS ORDERED: Acetaminophen 325 MG TAB PO PRN (01:30)
[2023-10-22] MEDS ORDERED: Dextrose 5% in Water 1,000 ML IV PRN (01:30)
[2023-10-22] MEDS ORDERED: Calcium Carbonate 500 MG ChewTAB PO PRN (01:30)
[2023-10-22] MEDS ORDERED: diphenhydrAMINE 25 MG in Sodium Chloride 0.9% 50 ML IVPB PRN (01:37)
[2023-10-22] MEDS ORDERED: diphenhydrAMINE 50 MG/ML VIAL IVP PRN (03:18)
[2023-10-22] MEDS: Promethazine HCl 12.5 MG, Admixture Fee 1 EACH in Sodium Chloride 0.9% 50 ML IVPB PRN (03:31)
[2023-10-22] MEDS: Lactated Ringer's 1,000 ML IV SCH (03:32)
[2023-10-22] MEDS ORDERED: Pantoprazole 40 MG VIAL ONE (03:45)
[2023-10-22] MEDS ORDERED: Lorazepam 2 MG/ML VIAL ONE (03:45)
[2023-10-22] MEDS: Pantoprazole 40 MG VIAL IVP SCH (03:59)
[2023-10-22] MEDS: Lorazepam 2 MG/ML VIAL SLOW IVP SCH (03:59)
[2023-10-22] MEDS: Lantus 1000 UNITS/10 ML VIAL SC SCH (03:59)
[2023-10-22 04:40] LABS: Anion Gap 16 mmol/L (10-20); BUN (Urea Nitrogen) 9 mg/dL (7.0-18.7); Calc. Creatinine Clearance 0 mL/min (70-130); Calcium 8.8 mg/dL (7.8-10.44); Carbon Dioxide 21 mmol/L (22-29); Chloride 106 mmol/L (98-107); Estimated GFR 107; Glucose 113 mg/dL (70-105); Potassium 3.8 mmol/L (3.5-5.1); Sodium 139 mmol/L (136-145)
[2023-10-22 04:47] LABS: #Monocytes 0.7 10x3/uL (0.0-1.1); %Basophils 0.3 % (0.0-2.0); %Eosinophils 0.4 % (0.0-6.0); %Lymphocytes 21.8 % (18.0-47.0); %Monocytes 5.8 % (0.0-10.0); %Neutrophils 71.3 % (40.0-75.0); Hematocrit 40.8 % (34.9-44.5); Mean Corpuscular HGB CONC 34.3 g/dL (32.0-36.0); Mean Corpuscular Hemoglobin 29.9 pg (27.0-33.0); Mean Platelet Volume 10.2 fl (7.4-10.4); Platelet Count 190 10x3/uL (150-450); RBC Distribution Width 14.5 % (11.5-14.5); Red Blood Cell (RBC) Count 4.69 10x6/uL (3.90-5.03); White Blood Cell (WBC) Count 11.2 10x3/uL (3.5-10.5)
[2023-10-22 05:03] LABS: Influenza A by NAA Not Detected (NotDetected); Influenza B by NAA Not Detected (NotDetected); RSV by NAA Not Detected (NotDetected); SARS-CoV-2 NAA Rapid Test Not Detected (NotDetected)
[2023-10-22 05:20] LABS: Amphetamine Not Detected (NotDetected); Barbiturates Screen Not Detected (NotDetected); Benzodiazepine Screen Not Detected (NotDetected); Cocaine Metabolite Screen Not Detected (NotDetected); Methadone Not Detected (NotDetected); Methamphetamine Not Detected (NotDetected); Opiate Screen Detected (NotDetected); Oxycodone Screen Not Detected (NotDetected); Phencyclidine (PCP) Not Detected (NotDetected); THC/Cannabinoid Screen Not Detected (NotDetected); Tricyclic Screen Not Detected (NotDetected)
[2023-10-22 19:12] VITALS: BP 154/99; TEMP 98.1
[2023-10-22] MEDS ORDERED: Enoxaparin 40 MG (0.4 mL) SYRINGE SC SCH (21:00)
== END 2023-10-22 18:51 | disposition home or self-care (01) ==
LOC: CSHERS 22:19 → CSHERHOLD 10-22 00:30
PROVIDERS: ADMIT Student in an Organized Health Care Education/Training Program; ATTEND Family Medicine
DX: R11.2 Nausea with vomiting, unspecified (principal); E86.0 Dehydration; E11.10 Type 2 diabetes mellitus with ketoacidosis without coma; E78.5 Hyperlipidemia, unspecified; E66.01 Morbid (severe) obesity due to excess calories; R31.9 Hematuria, unspecified; Z88.8 Allergy status to other drugs, medicaments and biological substances; Z79.4 Long term (current) use of insulin; Z79.899 Other long term (current) drug therapy
CPT/HCPCS: 0241U; 36415; 36416; 76705; 80048; 80053; 80306; 82010; 83036; 83690; 85025; 93005; 93010; 96361; 96374; 96375; C9113; G0378; J1200; J1815; J2060; J2405; J2550; J3360; J7120; S0028

== ENCOUNTER 2023-10-24 09:21 | Emergency (ER) | payer SELFPAY ==
[2023-10-24] MEDS ORDERED: Metoclopramide HCl 10 MG (2 mL) VIAL ONE (10:01)
[2023-10-24] MEDS ORDERED: Famotidine/PF 20 mg/2ml Vial ONE (10:01)
[2023-10-24 10:24] LABS: Actual Bicarbonate (HCO3v) 23.4 mEq/L (22-28); Analyzer IN Cardio CS ER; Base Excess -0.6 mEq/L (-2 - +2); Calcium, Ionized (venous) 1.15 mmol/L (1.16-1.32); Chloride (VBG) 102 mmol/L (98-106); Hematocrit-VBG 46 % (36.0-47.0); Hemoglobin (Hb) 15.7 g/dL (11.7-15.5); Potassium (VBG) 3.71 mmol/L (3.70-5.30); Puncture Site Other Site; RapidComm Collect By CBN; Sodium 143 mmol/L (133-146); pH (venous) 7.424 (7.32-7.43)
[2023-10-24 10:27] LABS: #Eosinphils 0.1 10x3/uL (0.0-0.5); #Monocytes 0.5 10x3/uL (0.0-1.1); #Neutrophils 8.5 10x3/uL (1.5-8.4); %Basophils 0.3 % (0.0-2.0); %Eosinophils 0.4 % (0.0-6.0); %Lymphocytes 21.6 % (18.0-47.0); %Monocytes 4.4 % (0.0-10.0); Hematocrit 42.6 % (34.9-44.5); Hemoglobin 15.1 g/dL (12.0-15.5); Mean Corpuscular HGB CONC 35.4 g/dL (32.0-36.0); Mean Corpuscular Hemoglobin 30.6 pg (27.0-33.0); Mean Corpuscular Volume 86.2 fl (81.6-98.3); Mean Platelet Volume 10.2 fl (7.4-10.4); Platelet Count 211 10x3/uL (150-450); RBC Distribution Width 14.4 % (11.5-14.5); Red Blood Cell (RBC) Count 4.94 10x6/uL (3.90-5.03); White Blood Cell (WBC) Count 11.7 10x3/uL (3.5-10.5)
[2023-10-24 10:43] LABS: ALT (SGPT) 41 U/L (8-55); AST (SGOT) 22 U/L (5-34); Albumin 4.5 g/dL (3.5-5.0); Alkaline Phosphatase 67 U/L (40-110); Anion Gap 17 mmol/L (10-20); BUN (Urea Nitrogen) 10 mg/dL (7.0-18.7); Bilirubin, Total 0.6 mg/dL (0.2-1.2); Calc. Creatinine Clearance 0 mL/min (70-130); Calcium 9.2 mg/dL (7.8-10.44); Carbon Dioxide 23 mmol/L (22-29); Chloride 104 mmol/L (98-107); Estimated GFR 96; Globulin 3.4 g/dL (2.4-3.5); Glucose 182 mg/dL (70-105); Lipase 23 U/L (8-78); Potassium 3.7 mmol/L (3.5-5.1); Protein, Total 7.9 g/dL (6.0-8.3); Sodium 140 mmol/L (136-145)
[2023-10-24 11:24] LABS: BHCG - Serum Negative (NEGATIVE); Pregs Control Background? CLEAR/WHITE (CLR/WHITE); Pregs Control Bar Appear? YES (CONTROL BAR)
[2023-10-24] MEDS ORDERED: Haloperidol Lactate 5 MG/ML VIAL ONE (12:40)
[2023-10-24 13:47] LABS: Bilirubin Neg (Negative); Blood, Urine 150 (Negative); Clarity Clear (Clear); Glucose, Urine (Dipstick) >=1000 mg/dL (Negative); Ketone, Urine 150 mg/dL (Negative); Leukocyte Negative (Negative); Nitrite Negative (Negative); Protein, Urine (Dipstick) 100 mg/dl (Neg-Trace); Specific Gravity, Urine 1.015 (1.005-1.030); Urobilinogen Normal mg/dL (Less than 2)
[2023-10-24 14:26] LABS: Bacteria/HPF None Seen HPF (None Seen); CAUTI Indications for Culture Pelvic or flank pain; Squamous Epithelial 0-3 HPF (0-3); WBC/HPF 0-3 HPF (0-3)
[2023-10-24 14:27] LABS: Urine Culture Reflex No No
== END 2023-10-24 14:35 | disposition home or self-care (01) ==
LOC: CSHERS 09:21
DX: R11.2 Nausea with vomiting, unspecified (principal); R10.13 Epigastric pain; R03.0 Elevated blood-pressure reading, without diagnosis of hypertension; E11.9 Type 2 diabetes mellitus without complications; E78.5 Hyperlipidemia, unspecified
CPT/HCPCS: 81001; 82010; 82805; 83690; 84703; 93005; 96361; 96374; 96375; J1630; J2765; S0028

== ENCOUNTER 2023-11-24 17:44 | Inpatient (IN) | payer MEDICAID, OTHER ==
[2023-11-24] MEDS ORDERED: Metoclopramide HCl 10 MG (2 mL) VIAL ONE (19:03)
[2023-11-24] MEDS ORDERED: Ketorolac Tromethamine 30 MG (1 mL) VIAL ONE (19:04)
[2023-11-24 19:26] LABS: #Basophils 0.04 10x3/uL (0.0-0.2); #Eosinphils 0.02 10x3/uL (0.0-0.5); #Monocytes 0.56 10x3/uL (0.0-1.1); #Neutrophils 11.31 10x3/uL (1.5-8.4); %Basophils 0.3 % (0.0-2.0); %Eosinophils 0.1 % (0.0-6.0); %Lymphocytes 18.1 % (18.0-47.0); %Monocytes 3.8 % (0.0-10.0); %Neutrophils 77.1 % (40.0-75.0); Hematocrit 45.1 % (34.9-44.5); Hemoglobin 15.3 g/dL (12.0-15.5); Mean Corpuscular HGB CONC 33.9 g/dL (32.0-36.0); Mean Corpuscular Hemoglobin 29.4 pg (27.0-33.0); Mean Corpuscular Volume 86.7 fl (81.6-98.3); Platelet Count 227 10x3/uL (150-450); RBC Distribution Width 13.9 % (11.5-14.5); White Blood Cell (WBC) Count 14.7 10x3/uL (3.5-10.5)
[2023-11-24 19:29] LABS: Acetaminophen Less than 10 mcg/mL (10.0-30.0); Alcohol Less than 10.0 mg/dL (Less than 10); Lipase 31 U/L (8-78); Magnesium 2.4 mg/dL (1.6-2.6); Salicylate Less than 8.0 mg/dL (15.0-30.0)
[2023-11-24 19:30] LABS: BHCG - Serum Negative (NEGATIVE); Pregs Control Background? CLEAR/WHITE (CLR/WHITE); Pregs Control Bar Appear? YES (CONTROL BAR)
[2023-11-24] MEDS ORDERED: Haloperidol Lactate 5 MG/ML VIAL ONE (19:30)
[2023-11-24] MEDS ORDERED: diphenhydrAMINE 50 MG/ML VIAL ONE (19:30)
[2023-11-24 19:31] LABS: ALT (SGPT) 38 U/L (8-55); AST (SGOT) 22 U/L (5-34); Albumin 3.9 g/dL (3.5-5.0); Alkaline Phosphatase 78 U/L (40-110); Anion Gap 22 mmol/L (10-20); BUN (Urea Nitrogen) 13 mg/dL (7.0-18.7); Bilirubin, Total 0.5 mg/dL (0.2-1.2); Calc. Creatinine Clearance 0 mL/min (70-130); Calcium 9.8 mg/dL (7.8-10.44); Carbon Dioxide 22 mmol/L (22-29); Chloride 102 mmol/L (98-107); Estimated GFR 88; Globulin 4.7 g/dL (2.4-3.5); Glucose 171 mg/dL (70-105); Potassium 4.1 mmol/L (3.5-5.1); Protein, Total 8.6 g/dL (6.0-8.3); Sodium 142 mmol/L (136-145)
[2023-11-24 20:16] LABS: Actual Bicarbonate (HCO3v) 19.6 mEq/L (22-28); Analyzer IN Cardio CS ER; Calcium, Ionized (venous) 1.15 mmol/L (1.16-1.32); Chloride (VBG) 103 mmol/L (98-106); Hematocrit-VBG 48 % (36.0-47.0); Hemoglobin (Hb) 16.2 g/dL (11.7-15.5); Potassium (VBG) 4.07 mmol/L (3.70-5.30); Puncture Site Other Site; RapidComm Collect By CBL; Sodium 145 mmol/L (133-146); pH (venous) 7.356 (7.32-7.43)
[2023-11-24 20:53] LABS: Bilirubin Neg (Negative); Blood, Urine 150 (Negative); Clarity Clear (Clear); Glucose, Urine (Dipstick) >=1000 mg/dL (Negative); Ketone, Urine 150 mg/dL (Negative); Leukocyte Negative (Negative); Nitrite Negative (Negative); Protein, Urine (Dipstick) 100 mg/dl (Neg-Trace); Urobilinogen Normal mg/dL (Less than 2)
[2023-11-24 21:00] LABS: Bacteria/HPF None Seen HPF (None Seen); CAUTI Indications for Culture Alt mental st,lethar; RBC/HPF 0-3 HPF (0-3); Squamous Epithelial 0-3 HPF (0-3); WBC/HPF None Seen HPF (0-3)
[2023-11-24 21:01] LABS: Amphetamine Not Detected (NotDetected); Barbiturates Screen Not Detected (NotDetected); Benzodiazepine Screen Not Detected (NotDetected); Cocaine Metabolite Screen Not Detected (NotDetected); Methadone Not Detected (NotDetected); Methamphetamine Not Detected (NotDetected); Opiate Screen Not Detected (NotDetected); Oxycodone Screen Not Detected (NotDetected); Phencyclidine (PCP) Not Detected (NotDetected); THC/Cannabinoid Screen Not Detected (NotDetected); Tricyclic Screen Not Detected (NotDetected); Urine Culture Reflex No No
[2023-11-24] MEDS ORDERED: Electrolyte Replacement Protocol IVPB SCH (22:14)
[2023-11-24] MEDS ORDERED: Sodium Chloride 0.9% 1,000 ML IV PRN (22:14)
[2023-11-24] MEDS ORDERED: Dextrose 5 %-0.45 % NaCl 1,000 ML IV PRN (22:14)
[2023-11-24] MEDS ORDERED: Dextrose 50% Abboject 50 ML SYRINGE SLOW IVP PRN (22:14)
[2023-11-24] MEDS ORDERED: Morphine 4 MG/ML VIAL SLOW IVP PRN (22:19)
[2023-11-24 22:54] VITALS: BMI 41.8
[2023-11-24 22:57] LABS: Anion Gap 20 mmol/L (10-20); BUN (Urea Nitrogen) 13 mg/dL (7.0-18.7); Calc. Creatinine Clearance 175 mL/min (70-130); Calcium 8.9 mg/dL (7.8-10.44); Carbon Dioxide 21 mmol/L (22-29); Chloride 107 mmol/L (98-107); Estimated GFR 98; Glucose 151 mg/dL (70-105); Potassium 4.1 mmol/L (3.5-5.1); Sodium 144 mmol/L (136-145)
[2023-11-24] MEDS: Metoclopramide HCl 10 MG (2 mL) VIAL IVP PRN (23:23)
[2023-11-24] MEDS: D5 1/2 NS w/20 mEq KCL 1,000 ML IV PRN (23:28)
[2023-11-24] MEDS: INSULIN REGULAR IN 0.9 % NACL 100 UNITS in Premix 1 BAG IVPB SCH (23:39)
[2023-11-25] MEDS: Pantoprazole 40 MG VIAL IVP SCH ×2 (00:31→09:36)
[2023-11-25] MEDS: Morphine 2 MG/ML VIAL SLOW IVP PRN (00:31)
[2023-11-25 04:03] LABS: #Basophils 0.03 10x3/uL (0.0-0.2); #Eosinphils 0.04 10x3/uL (0.0-0.5); #Monocytes 0.76 10x3/uL (0.0-1.1); #Neutrophils 9.27 10x3/uL (1.5-8.4); %Basophils 0.2 % (0.0-2.0); %Eosinophils 0.3 % (0.0-6.0); %Lymphocytes 25.1 % (18.0-47.0); %Monocytes 5.6 % (0.0-10.0); %Neutrophils 68.5 % (40.0-75.0); Hematocrit 36.5 % (34.9-44.5); Hemoglobin 12.5 g/dL (12.0-15.5); Mean Corpuscular HGB CONC 34.2 g/dL (32.0-36.0); Mean Corpuscular Hemoglobin 30.4 pg (27.0-33.0); Mean Corpuscular Volume 88.8 fl (81.6-98.3); Platelet Count 199 10x3/uL (150-450); RBC Distribution Width 14.1 % (11.5-14.5); Red Blood Cell (RBC) Count 4.11 10x6/uL (3.90-5.03); White Blood Cell (WBC) Count 13.5 10x3/uL (3.5-10.5)
[2023-11-25 04:06] LABS: Anion Gap 12 mmol/L (10-20); BUN (Urea Nitrogen) 12 mg/dL (7.0-18.7); Calc. Creatinine Clearance 183 mL/min (70-130); Calcium 8.4 mg/dL (7.8-10.44); Carbon Dioxide 25 mmol/L (22-29); Chloride 108 mmol/L (98-107); Estimated GFR 104; Glucose 187 mg/dL (70-105); Potassium 3.6 mmol/L (3.5-5.1); Sodium 141 mmol/L (136-145)
[2023-11-25 07:49] LABS: Anion Gap 11 mmol/L (10-20); BUN (Urea Nitrogen) 11 mg/dL (7.0-18.7); Calc. Creatinine Clearance 171 mL/min (70-130); Calcium 8.6 mg/dL (7.8-10.44); Carbon Dioxide 25 mmol/L (22-29); Chloride 108 mmol/L (98-107); Estimated GFR 95; Glucose 164 mg/dL (70-105); Magnesium 2.1 mg/dL (1.6-2.6); Phosphorus 2.5 mg/dL (2.3-4.7); Potassium 3.7 mmol/L (3.5-5.1); Sodium 140 mmol/L (136-145)
[2023-11-25] MEDS: FLU VACC QS2023-24(6MOS UP)/PF 60 MCG/0.5 ML SYRINGE IM ONE (09:34)
[2023-11-25] MEDS: Enoxaparin 40 MG (0.4 mL) SYRINGE SC SCH (09:35)
[2023-11-25] MEDS ORDERED: HumaLOG 300 UNITS/3 ML VIAL SC PRN ×2 (09:43)
[2023-11-25] MEDS ORDERED: Dextrose 5% in Water 1,000 ML IV PRN (09:43)
[2023-11-25] MEDS ORDERED: Dextrose 50% Abboject 50 ML SYRINGE SLOW IVP PRN (09:43)
[2023-11-25] MEDS ORDERED: Glucagon 1 MG/ML KIT IM PRN (09:43)
[2023-11-25] MEDS: Lantus 1000 UNITS/10 ML VIAL SC SCH (10:39)
[2023-11-25] MEDS: 1/2 NS w/Potassium 20 mEq 1,000 ML IV SCH (10:39)
[2023-11-26] MEDS: 1/2 NS w/Potassium 20 mEq 1,000 ML IV SCH (01:22)
[2023-11-26 05:34] LABS: #Basophils 0.05 10x3/uL (0.0-0.2); #Eosinphils 0.14 10x3/uL (0.0-0.5); #Monocytes 0.71 10x3/uL (0.0-1.1); %Basophils 0.4 % (0.0-2.0); %Eosinophils 1.3 % (0.0-6.0); %Lymphocytes 41.1 % (18.0-47.0); %Monocytes 6.4 % (0.0-10.0); %Neutrophils 50.3 % (40.0-75.0); Hematocrit 34.8 % (34.9-44.5); Mean Corpuscular HGB CONC 34.5 g/dL (32.0-36.0); Mean Corpuscular Hemoglobin 30.2 pg (27.0-33.0); Mean Corpuscular Volume 87.7 fl (81.6-98.3); Mean Platelet Volume 10.8 fl (7.4-10.4); Platelet Count 185 10x3/uL (150-450); RBC Distribution Width 13.8 % (11.5-14.5); Red Blood Cell (RBC) Count 3.97 10x6/uL (3.90-5.03); White Blood Cell (WBC) Count 11.1 10x3/uL (3.5-10.5)
[2023-11-26 06:31] LABS: Anion Gap 10 mmol/L (10-20); BUN (Urea Nitrogen) 5 mg/dL (7.0-18.7); Calc. Creatinine Clearance 213 mL/min (70-130); Calcium 8.4 mg/dL (7.8-10.44); Carbon Dioxide 24 mmol/L (22-29); Chloride 105 mmol/L (98-107); Estimated GFR 121; Glucose 144 mg/dL (70-105); Magnesium 1.8 mg/dL (1.6-2.6); Phosphorus 2.9 mg/dL (2.3-4.7); Potassium 3.7 mmol/L (3.5-5.1); Sodium 135 mmol/L (136-145)
[2023-11-26 08:18] VITALS: BP 128/82; TEMP 98
[2023-11-26] MEDS: Lantus 1000 UNITS/10 ML VIAL SC SCH (08:52)
[2023-11-26] MEDS ORDERED: Lantus 1000 UNITS/10 ML VIAL SC SCH (09:00)
== END 2023-11-26 10:15 | disposition home or self-care (01) | DRG 638 ==
LOC: CSHERS 17:44 → CSHIMCU 21:43 → CSHTELE 11-25 14:55
PROVIDERS: ADMIT Family Medicine; ATTEND Internal Medicine
DX: E11.10 Type 2 diabetes mellitus with ketoacidosis without coma (principal); E87.1 Hypo-osmolality and hyponatremia; Z68.41 Body mass index [BMI] 40.0-44.9, adult; E66.01 Morbid (severe) obesity due to excess calories; E86.0 Dehydration; E78.5 Hyperlipidemia, unspecified; K44.9 Diaphragmatic hernia without obstruction or gangrene; E83.42 Hypomagnesemia; D72.829 Elevated white blood cell count, unspecified; Z98.890 Other specified postprocedural states; Z88.8 Allergy status to other drugs, medicaments and biological substances; Z83.3 Family history of diabetes mellitus; Z82.49 Family history of ischemic heart disease and other diseases of the circulatory system
CPT/HCPCS: 36415; 36416; 80048; 80053; 80306; 80307; 81001; 82010; 82805; 83690; 83735; 84100; 84703; 85025; 93005; 96361; 96374; 96375; C9113; J1200; J1630; J1650; J1815; J1885; J2272; J2765; J3480; J7042; J7050

== ENCOUNTER 2024-05-14 08:14 | Inpatient (IN) | payer OTHER, MEDICAID ==
[2024-05-14] MEDS ORDERED: Ketorolac Tromethamine 30 MG (1 mL) VIAL ONE (08:50)
[2024-05-14 09:16] LABS: #Basophils 0.03 10x3/uL (0.0-0.2); #Eosinphils 0.12 10x3/uL (0.0-0.5); #Monocytes 0.77 10x3/uL (0.0-1.1); #Neutrophils 10.54 10x3/uL (1.5-8.4); %Basophils 0.2 % (0.0-2.0); %Eosinophils 0.8 % (0.0-6.0); %Lymphocytes 22.1 % (18.0-47.0); %Monocytes 5.2 % (0.0-10.0); %Neutrophils 71.2 % (40.0-75.0); BHCG - Serum Negative (NEGATIVE); Hematocrit 35.2 % (34.9-44.5); Hemoglobin 12.4 g/dL (12.0-15.5); Mean Corpuscular HGB CONC 35.2 g/dL (32.0-36.0); Mean Corpuscular Hemoglobin 29.7 pg (27.0-33.0); Mean Corpuscular Volume 84.4 fL (81.6-98.3); Mean Platelet Volume 11.4 fL (7.4-10.4); Platelet Count 174 10x3/uL (150-450); Pregs Control Background? CLEAR/WHITE (CLR/WHITE); Pregs Control Bar Appear? YES (CONTROL BAR); RBC Distribution Width 13.2 % (11.5-14.5); Red Blood Cell (RBC) Count 4.17 10x6/uL (3.90-5.03); White Blood Cell (WBC) Count 14.8 10x3/uL (3.5-10.5)
[2024-05-14 09:26] LABS: ALT (SGPT) 49 U/L (8-55); AST (SGOT) 25 U/L (5-34); Albumin 3.3 g/dL (3.5-5.0); Alkaline Phosphatase 103 U/L (40-110); Anion Gap 14 mmol/L (10-20); BUN (Urea Nitrogen) 15 mg/dL (7.0-18.7); Bilirubin, Total 0.5 mg/dL (0.2-1.2); Calc. Creatinine Clearance 0 mL/min (70-130); Calcium 9.3 mg/dL (7.8-10.44); Carbon Dioxide 25 mmol/L (22-29); Chloride 99 mmol/L (98-107); Estimated GFR 79; Globulin 4.9 g/dL (2.4-3.5); Glucose 378 mg/dL (70-105); Lipase 23 U/L (8-78); Magnesium 2.1 mg/dL (1.6-2.6); Potassium 4.2 mmol/L (3.5-5.1); Protein, Total 8.2 g/dL (6.0-8.3); Sodium 134 mmol/L (136-145)
[2024-05-14] MEDS ORDERED: Cefepime 2 GM VIAL ONE (09:37)
[2024-05-14] MEDS ORDERED: Iopamidol-370 76% 500 ML MDV (1 ML CHARGE) ONE (11:08)
[2024-05-14] MEDS ORDERED: Prochlorperazine 10 MG/2 ML VIAL ONE (11:13)
[2024-05-14] MEDS ORDERED: Morphine 4 MG/ML VIAL ONE (11:13)
[2024-05-14 11:54] LABS: Bilirubin Neg (Negative); Blood, Urine 250 (Negative); Glucose, Urine (Dipstick) >=1000 mg/dL (Negative); Ketone, Urine Negative (Negative); Leukocyte 25 (Negative); Nitrite Negative (Negative); Protein, Urine (Dipstick) 100 mg/dl (Neg-Trace); Specific Gravity, Urine 1.005 (1.005-1.030); Urobilinogen Normal mg/dL (Less than 2)
[2024-05-14 12:04] LABS: Clarity Hazy (Clear)
[2024-05-14 12:09] LABS: Bacteria/HPF 2+ HPF (None Seen); CAUTI Indications for Culture Pelvic or flank pain; WBC/HPF 0-3 HPF (0-3); Yeast-Budding 1+ HPF (None Seen)
[2024-05-14 12:10] LABS: Urine Culture Reflex No No
[2024-05-14] MEDS ORDERED: Glucagon 1 MG/ML KIT IM PRN (12:36)
[2024-05-14] MEDS ORDERED: Dextrose 50% Abboject 50 ML SYRINGE SLOW IVP PRN (12:36)
[2024-05-14] MEDS ORDERED: Dextrose 5% in Water 1,000 ML IV PRN (12:36)
[2024-05-14 14:02] VITALS: BMI 46.1
[2024-05-14] MEDS: VANCOMYCIN IVPB SCH (14:27)
[2024-05-14] MEDS: SODIUM CHLORIDE 0.9% IVPB SCH (14:27)
[2024-05-14] MEDS: cefTRIAXone\\ROCEPHIN 1 GM in Sodium Chloride 0.9% 100 ML IVPB SCH (14:36)
[2024-05-14] MEDS: Sodium Chloride 0.9% 1,000 ML IV SCH (14:36)
[2024-05-14] MEDS: Gabapentin 300 MG CAP PO SCH ×2 (14:40→20:31)
[2024-05-14] MEDS: Insulin Lispro 100 UNIT/ML 10 ML VIAL SC PRN (17:53)
[2024-05-14] MEDS: Acetaminophen 325 MG TAB PO SCH (17:53)
[2024-05-14] MEDS: Promethazine HCl 12.5 MG in Sodium Chloride 0.9% 50 ML IVPB PRN (20:26)
[2024-05-14] MEDS: Azithromycin 500 MG in Sodium Chloride 0.9% 250 ML 250 ML IVPB SCH (20:30)
[2024-05-15 05:01] LABS: Anion Gap 13 mmol/L (10-20); BUN (Urea Nitrogen) 9 mg/dL (7.0-18.7); Calc. Creatinine Clearance 208 mL/min (70-130); Calcium 8.4 mg/dL (7.8-10.44); Carbon Dioxide 23 mmol/L (22-29); Chloride 104 mmol/L (98-107); Estimated GFR 108; Glucose 205 mg/dL (70-105); Potassium 3.9 mmol/L (3.5-5.1); Sodium 136 mmol/L (136-145)
[2024-05-15 05:03] LABS: #Basophils 0.03 10x3/uL (0.0-0.2); #Eosinphils 0.13 10x3/uL (0.0-0.5); #Monocytes 0.58 10x3/uL (0.0-1.1); #Neutrophils 8.16 10x3/uL (1.5-8.4); %Basophils 0.2 % (0.0-2.0); %Eosinophils 1.1 % (0.0-6.0); %Lymphocytes 26.1 % (18.0-47.0); %Monocytes 4.8 % (0.0-10.0); %Neutrophils 67.4 % (40.0-75.0); Hematocrit 33.5 % (34.9-44.5); Hemoglobin 11.4 g/dL (12.0-15.5); Mean Corpuscular Hemoglobin 29.4 pg (27.0-33.0); Mean Corpuscular Volume 86.3 fL (81.6-98.3); Mean Platelet Volume 10.8 fL (7.4-10.4); Platelet Count 173 10x3/uL (150-450); RBC Distribution Width 13.2 % (11.5-14.5); Red Blood Cell (RBC) Count 3.88 10x6/uL (3.90-5.03); White Blood Cell (WBC) Count 12.1 10x3/uL (3.5-10.5)
[2024-05-15] MEDS: traMADol HCl 50 MG TAB PO PRN (06:10)
[2024-05-15] MEDS: Enoxaparin 40 MG (0.4 mL) SYRINGE SC SCH (08:21)
[2024-05-15] MEDS: Lidocaine 4% Patch TD SCH (08:35)
[2024-05-15] MEDS: glipiZIDE 10 MG TAB PO SCH (17:52)
[2024-05-15] MEDS: Lantus 1000 UNITS/10 ML VIAL SC SCH (20:42)
[2024-05-15] MEDS: LIDOCAINE Patch Removal TOP SCH (20:45)
[2024-05-16 08:25] LABS: #Basophils 0.02 10x3/uL (0.0-0.2); #Eosinphils 0.15 10x3/uL (0.0-0.5); #Monocytes 0.65 10x3/uL (0.0-1.1); #Neutrophils 7.11 10x3/uL (1.5-8.4); %Basophils 0.2 % (0.0-2.0); %Eosinophils 1.3 % (0.0-6.0); %Lymphocytes 30.8 % (18.0-47.0); %Monocytes 5.6 % (0.0-10.0); %Neutrophils 61.5 % (40.0-75.0); Hematocrit 30.1 % (34.9-44.5); Mean Corpuscular HGB CONC 33.2 g/dL (32.0-36.0); Mean Corpuscular Hemoglobin 28.5 pg (27.0-33.0); Mean Corpuscular Volume 85.8 fL (81.6-98.3); Mean Platelet Volume 10.6 fL (7.4-10.4); Platelet Count 171 10x3/uL (150-450); RBC Distribution Width 13.2 % (11.5-14.5); Red Blood Cell (RBC) Count 3.51 10x6/uL (3.90-5.03); White Blood Cell (WBC) Count 11.6 10x3/uL (3.5-10.5)
[2024-05-16 08:52] VITALS: BP 132/91; TEMP 97.8
== END 2024-05-16 10:00 | disposition home or self-care (01) | DRG 871 ==
LOC: CSHERS 08:14 → CSHTELE 12:29
PROVIDERS: ADMIT Family Medicine; ATTEND Family Medicine
DX: A41.9 Sepsis, unspecified organism (principal); J18.9 Pneumonia, unspecified organism; Z68.42 Body mass index [BMI] 45.0-49.9, adult; N39.0 Urinary tract infection, site not specified; E11.9 Type 2 diabetes mellitus without complications; E66.01 Morbid (severe) obesity due to excess calories; R29.6 Repeated falls; Z88.8 Allergy status to other drugs, medicaments and biological substances; Z79.84 Long term (current) use of oral hypoglycemic drugs
CPT/HCPCS: 36415; 36416; 71045; 74177; 80048; 80053; 81001; 83605; 83690; 83735; 84145; 84703; 85025; 85379; 87040; 93005; 93010; 96361; 96365; 96375; J0456; J0692; J0696; J0780; J1650; J1815; J1885; J2272; J2550; J7030; J7050; Q9967

== ENCOUNTER 2024-05-19 17:42 | Observation (INO) | payer OTHER, MEDICAID ==
[~2024-05-19 17:42] MED LIST: Iopamidol 300 61% 100 ML VIAL FS ONE
[2024-05-19 18:19] LABS: BHCG - Serum Negative (NEGATIVE); Pregs Control Background? CLEAR/WHITE (CLR/WHITE); Pregs Control Bar Appear? YES (CONTROL BAR)
[2024-05-19 18:24] LABS: ALT (SGPT) 60 U/L (8-55); AST (SGOT) 72 U/L (5-34); Albumin 3.2 g/dL (3.5-5.0); Alkaline Phosphatase 89 U/L (40-110); Anion Gap 18 mmol/L (10-20); BUN (Urea Nitrogen) 12 mg/dL (7.0-18.7); Bilirubin, Total 0.5 mg/dL (0.2-1.2); Calc. Creatinine Clearance 0 mL/min (70-130); Calcium 9.7 mg/dL (7.8-10.44); Carbon Dioxide 23 mmol/L (22-29); Chloride 100 mmol/L (98-107); Estimated GFR 89; Globulin 5.3 g/dL (2.4-3.5); Glucose 232 mg/dL (70-105); Potassium 4.5 mmol/L (3.5-5.1); Protein, Total 8.5 g/dL (6.0-8.3); Sodium 136 mmol/L (136-145)
[2024-05-19 19:20] LABS: #Basophils 0.04 10x3/uL (0.0-0.2); #Eosinphils 0.11 10x3/uL (0.0-0.5); #Neutrophils 9.84 10x3/uL (1.5-8.4); %Basophils 0.3 % (0.0-2.0); %Eosinophils 0.8 % (0.0-6.0); %Lymphocytes 22.2 % (18.0-47.0); %Monocytes 4.4 % (0.0-10.0); %Neutrophils 71.8 % (40.0-75.0); Hematocrit 37.3 % (34.9-44.5); Hemoglobin 13.2 g/dL (12.0-15.5); Mean Corpuscular HGB CONC 35.4 g/dL (32.0-36.0); Mean Corpuscular Hemoglobin 29.6 pg (27.0-33.0); Mean Corpuscular Volume 83.6 fL (81.6-98.3); Mean Platelet Volume 10.1 fL (7.4-10.4); Platelet Count 237 10x3/uL (150-450); RBC Distribution Width 12.9 % (11.5-14.5); Red Blood Cell (RBC) Count 4.46 10x6/uL (3.90-5.03); White Blood Cell (WBC) Count 13.7 10x3/uL (3.5-10.5)
[2024-05-19] MEDS ORDERED: Ondansetron PF 4 MG/2 ML Vial ONE (19:38)
[2024-05-19] MEDS ORDERED: Morphine 4 MG/ML VIAL ONE (20:08)
[2024-05-19] MEDS: Promethazine HCl 12.5 MG in Sodium Chloride 0.9% 50 ML IVPB SCH (20:30)
[2024-05-19 20:46] LABS: Lipase 21 U/L (8-78); Magnesium 2.1 mg/dL (1.6-2.6)
[2024-05-19] MEDS ORDERED: Metoclopramide HCl 10 MG (2 mL) VIAL ONE (21:09)
[2024-05-20 00:31] LABS: Bilirubin Neg (Negative); Blood, Urine 250 (Negative); Clarity Slightly Cloudy (Clear); Glucose, Urine (Dipstick) Normal (Negative); Ketone, Urine 50 mg/dL (Negative); Leukocyte 25 (Negative); Nitrite Negative (Negative); Protein, Urine (Dipstick) 500 mg/dl (Neg-Trace); Specific Gravity, Urine 1.015 (1.005-1.030); Urobilinogen Normal mg/dL (Less than 2)
[2024-05-20 00:56] LABS: SARS-CoV-2 E Target Negative; SARS-CoV-2 N2 Target Negative; SARS-CoV-2 NAA Rapid Test Not Detected (NotDetected); SARS-CoV-2 RdRP gene Negative
[2024-05-20 01:02] LABS: Bacteria/HPF 1+ HPF (None Seen); CAUTI Indications for Culture Dysuria,urgency,freq
[2024-05-20 01:04] LABS: Urine Culture Reflex Yes Yes
[2024-05-20] MEDS ORDERED: cefTRIAXone (ROCEPHIN) 1 GM VIAL ONE (01:09)
[2024-05-20] MEDS ORDERED: Haloperidol Lactate 5 MG/ML VIAL ONE (01:24)
[2024-05-20] MEDS ORDERED: Ondansetron PF 4 MG/2 ML Vial IVP PRN (01:25)
[2024-05-20] MEDS ORDERED: Acetaminophen 650 MG Suppository PR PRN (01:25)
[2024-05-20] MEDS ORDERED: Insulin Lispro 100 UNIT/ML 10 ML VIAL SC PRN (01:31)
[2024-05-20] MEDS ORDERED: Dextrose 5% in Water 1,000 ML IV PRN (01:31)
[2024-05-20] MEDS ORDERED: Glucagon 1 MG/ML KIT IM PRN (01:31)
[2024-05-20] MEDS ORDERED: Dextrose 50% Abboject 50 ML SYRINGE SLOW IVP PRN (01:31)
[2024-05-20 01:35] LABS: Amphetamine Not Detected (NotDetected); Barbiturates Screen Not Detected (NotDetected); Benzodiazepine Screen Not Detected (NotDetected); Cocaine Metabolite Screen Not Detected (NotDetected); Methadone Not Detected (NotDetected); Methamphetamine Not Detected (NotDetected); Opiate Screen Detected (NotDetected); Oxycodone Screen Not Detected (NotDetected); Phencyclidine (PCP) Not Detected (NotDetected); THC/Cannabinoid Screen Not Detected (NotDetected); Tricyclic Screen Not Detected (NotDetected)
[2024-05-20 03:00] VITALS: BMI 44.9
[2024-05-20] MEDS: Sodium Chloride 0.9% 1,000 ML IV SCH (03:15)
[2024-05-20] MEDS: Pantoprazole 40 MG VIAL IVP SCH (03:15)
[2024-05-20 04:13] LABS: #Basophils 0.03 10x3/uL (0.0-0.2); #Eosinphils 0.06 10x3/uL (0.0-0.5); #Monocytes 0.58 10x3/uL (0.0-1.1); #Neutrophils 9.51 10x3/uL (1.5-8.4); %Basophils 0.2 % (0.0-2.0); %Eosinophils 0.5 % (0.0-6.0); %Lymphocytes 19.7 % (18.0-47.0); %Monocytes 4.5 % (0.0-10.0); %Neutrophils 74.6 % (40.0-75.0); Hematocrit 33.5 % (34.9-44.5); Hemoglobin 11.6 g/dL (12.0-15.5); Mean Corpuscular HGB CONC 34.6 g/dL (32.0-36.0); Mean Corpuscular Hemoglobin 29.6 pg (27.0-33.0); Mean Corpuscular Volume 85.5 fL (81.6-98.3); Platelet Count 241 10x3/uL (150-450); Red Blood Cell (RBC) Count 3.92 10x6/uL (3.90-5.03); White Blood Cell (WBC) Count 12.8 10x3/uL (3.5-10.5)
[2024-05-20 04:29] LABS: ALT (SGPT) 45 U/L (8-55); AST (SGOT) 30 U/L (5-34); Albumin 2.7 g/dL (3.5-5.0); Alkaline Phosphatase 69 U/L (40-110); Anion Gap 17 mmol/L (10-20); BUN (Urea Nitrogen) 14 mg/dL (7.0-18.7); Bilirubin, Total 0.3 mg/dL (0.2-1.2); Calc. Creatinine Clearance 177 mL/min (70-130); Calcium 8.6 mg/dL (7.8-10.44); Carbon Dioxide 23 mmol/L (22-29); Chloride 104 mmol/L (98-107); Estimated GFR 92; Globulin 4.7 g/dL (2.4-3.5); Glucose 249 mg/dL (70-105); Protein, Total 7.4 g/dL (6.0-8.3); Sodium 140 mmol/L (136-145)
[2024-05-20 04:31] LABS: Influenza A by NAA Not Detected (NotDetected); Influenza B by NAA Not Detected (NotDetected); SARS-CoV-2 NAA Rapid Test Not Detected (NotDetected)
[2024-05-20] MEDS ORDERED: Metoclopramide HCl 10 MG (2 mL) VIAL IVP PRN (05:00)
[2024-05-20] MEDS: Insulin Lispro 100 UNIT/ML 10 ML VIAL SC PRN (06:52)
[2024-05-20 08:21] LABS: Actual Bicarbonate (HCO3v) 25.3 mEq/L (22-28); Analyzer IN Cardio CS ER; Base Excess 2.1 mEq/L (-2 - +2); Calcium, Ionized (venous) 1.13 mmol/L (1.16-1.32); Chloride (VBG) 99 mmol/L (98-106); Critical Notified Whom: whibra; Hematocrit-VBG 41 % (36.0-47.0); Potassium (VBG) 4.06 mmol/L (3.70-5.30); Puncture Site Other Site; RapidComm Collect By cbn; Sodium 140 mmol/L (133-146); pH (venous) 7.479 (7.32-7.43)
[2024-05-20] MEDS: Gabapentin 300 MG CAP PO SCH (08:28)
[2024-05-20] MEDS: Metoclopramide HCl 10 MG (2 mL) VIAL IVP SCH (08:29)
[2024-05-20] MEDS: Lantus 1000 UNITS/10 ML VIAL SC SCH (20:29)
[2024-05-21] MEDS: cefTRIAXone\\ROCEPHIN 1 GM in Sodium Chloride 0.9% 100 ML IVPB SCH (00:31)
[2024-05-21 04:08] LABS: #Basophils 0.04 10x3/uL (0.0-0.2); #Eosinphils 0.18 10x3/uL (0.0-0.5); #Monocytes 0.71 10x3/uL (0.0-1.1); #Neutrophils 6.23 10x3/uL (1.5-8.4); %Basophils 0.4 % (0.0-2.0); %Eosinophils 1.6 % (0.0-6.0); %Lymphocytes 35.2 % (18.0-47.0); %Monocytes 6.4 % (0.0-10.0); Hematocrit 30.1 % (34.9-44.5); Hemoglobin 10.4 g/dL (12.0-15.5); Mean Corpuscular HGB CONC 34.6 g/dL (32.0-36.0); Mean Corpuscular Hemoglobin 29.4 pg (27.0-33.0); Mean Platelet Volume 9.7 fL (7.4-10.4); Platelet Count 195 10x3/uL (150-450); RBC Distribution Width 12.8 % (11.5-14.5); Red Blood Cell (RBC) Count 3.54 10x6/uL (3.90-5.03); White Blood Cell (WBC) Count 11.1 10x3/uL (3.5-10.5)
[2024-05-21 04:56] LABS: ALT (SGPT) 47 U/L (8-55); AST (SGOT) 46 U/L (5-34); Albumin 2.4 g/dL (3.5-5.0); Alkaline Phosphatase 65 U/L (40-110); Anion Gap 11 mmol/L (10-20); BUN (Urea Nitrogen) 7 mg/dL (7.0-18.7); Bilirubin, Total 0.3 mg/dL (0.2-1.2); Calc. Creatinine Clearance 200 mL/min (70-130); Calcium 7.8 mg/dL (7.8-10.44); Carbon Dioxide 24 mmol/L (22-29); Chloride 106 mmol/L (98-107); Estimated GFR 106; Globulin 4.2 g/dL (2.4-3.5); Glucose 214 mg/dL (70-105); Magnesium 1.9 mg/dL (1.6-2.6); Potassium 3.6 mmol/L (3.5-5.1); Protein, Total 6.6 g/dL (6.0-8.3); Sodium 137 mmol/L (136-145)
[2024-05-21] MEDS: Pantoprazole 40 MG VIAL IVP SCH (09:12)
[2024-05-22 04:04] LABS: #Basophils 0.03 10x3/uL (0.0-0.2); #Monocytes 0.79 10x3/uL (0.0-1.1); #Neutrophils 6.78 10x3/uL (1.5-8.4); %Basophils 0.3 % (0.0-2.0); %Eosinophils 1.7 % (0.0-6.0); %Lymphocytes 32.2 % (18.0-47.0); %Monocytes 6.8 % (0.0-10.0); %Neutrophils 58.4 % (40.0-75.0); Hematocrit 31.5 % (34.9-44.5); Hemoglobin 10.7 g/dL (12.0-15.5); Mean Corpuscular Hemoglobin 28.8 pg (27.0-33.0); Mean Corpuscular Volume 84.7 fL (81.6-98.3); Mean Platelet Volume 9.9 fL (7.4-10.4); Platelet Count 193 10x3/uL (150-450); RBC Distribution Width 12.5 % (11.5-14.5); Red Blood Cell (RBC) Count 3.72 10x6/uL (3.90-5.03); White Blood Cell (WBC) Count 11.6 10x3/uL (3.5-10.5)
[2024-05-22 04:31] LABS: ALT (SGPT) 43 U/L (8-55); AST (SGOT) 27 U/L (5-34); Albumin 2.6 g/dL (3.5-5.0); Alkaline Phosphatase 77 U/L (40-110); Anion Gap 13 mmol/L (10-20); BUN (Urea Nitrogen) 8 mg/dL (7.0-18.7); Bilirubin, Total 0.3 mg/dL (0.2-1.2); Calc. Creatinine Clearance 157 mL/min (70-130); Calcium 8.4 mg/dL (7.8-10.44); Carbon Dioxide 22 mmol/L (22-29); Chloride 103 mmol/L (98-107); Estimated GFR 80; Globulin 4.3 g/dL (2.4-3.5); Glucose 341 mg/dL (70-105); Magnesium 1.8 mg/dL (1.6-2.6); Potassium 3.5 mmol/L (3.5-5.1); Protein, Total 6.9 g/dL (6.0-8.3); Sodium 134 mmol/L (136-145)
[2024-05-22 05:04] VITALS: TEMP 98.5
[2024-05-22 07:33] VITALS: BP 127/82
== END 2024-05-22 10:55 | disposition home or self-care (01) ==
LOC: CSHERS 17:42 → CSHTELE 05-20 01:25
PROVIDERS: ADMIT Internal Medicine; ATTEND Family Medicine
DX: R11.2 Nausea with vomiting, unspecified (principal); R51.9 Headache, unspecified; E11.42 Type 2 diabetes mellitus with diabetic polyneuropathy; E66.9 Obesity, unspecified; N39.0 Urinary tract infection, site not specified; Z79.4 Long term (current) use of insulin; Z88.8 Allergy status to other drugs, medicaments and biological substances; Z79.84 Long term (current) use of oral hypoglycemic drugs; Z68.41 Body mass index [BMI] 40.0-44.9, adult
CPT/HCPCS: 36415; 36416; 70450; 71045; 74177; 80053; 80306; 81001; 82805; 83605; 83690; 83735; 84703; 85025; 87086; 93005; 94760; 94762; 96375; 96376; G0378; J0696; J1630; J1815; J2272; J2405; J2470; J2550; J2765; J7030; Q9967; U0002

== ENCOUNTER 2024-05-26 09:28 | Emergency (ER) | payer OTHER, MEDICAID ==
[2024-05-26 10:13] LABS: #Basophils 0.03 10x3/uL (0.0-0.2); #Eosinphils 0.06 10x3/uL (0.0-0.5); #Monocytes 0.58 10x3/uL (0.0-1.1); %Basophils 0.2 % (0.0-2.0); %Eosinophils 0.5 % (0.0-6.0); %Lymphocytes 27.1 % (18.0-47.0); %Monocytes 4.5 % (0.0-10.0); %Neutrophils 67.5 % (40.0-75.0); Hematocrit 40.2 % (34.9-44.5); Hemoglobin 14.4 g/dL (12.0-15.5); Mean Corpuscular HGB CONC 35.8 g/dL (32.0-36.0); Mean Corpuscular Hemoglobin 29.6 pg (27.0-33.0); Mean Corpuscular Volume 82.5 fL (81.6-98.3); Mean Platelet Volume 10.1 fL (7.4-10.4); Platelet Count 264 10x3/uL (150-450); RBC Distribution Width 12.7 % (11.5-14.5); Red Blood Cell (RBC) Count 4.87 10x6/uL (3.90-5.03); White Blood Cell (WBC) Count 12.9 10x3/uL (3.5-10.5)
[2024-05-26 10:26] LABS: ALT (SGPT) 38 U/L (8-55); AST (SGOT) 25 U/L (5-34); Albumin 3.4 g/dL (3.5-5.0); Alkaline Phosphatase 83 U/L (40-110); Anion Gap 18 mmol/L (10-20); BUN (Urea Nitrogen) 21 mg/dL (7.0-18.7); Bilirubin, Total 0.7 mg/dL (0.2-1.2); Calc. Creatinine Clearance 0 mL/min (70-130); Calcium 9.9 mg/dL (7.8-10.44); Carbon Dioxide 24 mmol/L (22-29); Chloride 98 mmol/L (98-107); Estimated GFR 62; Globulin 5.5 g/dL (2.4-3.5); Glucose 371 mg/dL (70-105); Lipase 43 U/L (8-78); Potassium 4.2 mmol/L (3.5-5.1); Protein, Total 8.9 g/dL (6.0-8.3); Sodium 136 mmol/L (136-145)
[2024-05-26 10:32] LABS: BHCG - Serum Negative (NEGATIVE); Pregs Control Background? CLEAR/WHITE (CLR/WHITE); Pregs Control Bar Appear? YES (CONTROL BAR)
[2024-05-26] MEDS ORDERED: Promethazine HCl 12.5 MG in Sodium Chloride 0.9% 50 ML IVPB SCH (10:45)
[2024-05-26] MEDS ORDERED: diphenhydrAMINE 50 MG/ML VIAL ONE (12:41)
[2024-05-26] MEDS ORDERED: Metoclopramide HCl 10 MG (2 mL) VIAL ONE (12:41)
[2024-05-26 14:20] LABS: Bilirubin Neg (Negative); Blood, Urine 250 (Negative); Clarity Slightly Cloudy (Clear); Glucose, Urine (Dipstick) >=1000 mg/dL (Negative); Ketone, Urine 50 mg/dL (Negative); Leukocyte 25 (Negative); Nitrite Negative (Negative); Protein, Urine (Dipstick) 500 mg/dl (Neg-Trace); Urobilinogen Normal mg/dL (Less than 2)
[2024-05-26 14:22] LABS: Pregnancy Test - Urine (BHCG) Negative (Negative); Pregu Control Background? CLEAR/WHITE (CLR/WHITE); Pregu Control Bar Appear? YES (CONTROL BAR)
[2024-05-26] MEDS ORDERED: Droperidol 5 MG/2 ML VIAL ONE (14:35)
[2024-05-26 14:43] LABS: CAUTI Indications for Culture Pelvic or flank pain; RBC/HPF 21-50 HPF (0-3); WBC/HPF 0-3 HPF (0-3)
[2024-05-26 14:44] LABS: Bacteria/HPF Rare-Few HPF (None Seen); Mucous/LPF Rare LPF (<2+); Urine Culture Reflex No No; Yeast-Budding Rare HPF (None Seen)
== END 2024-05-26 15:50 | disposition home or self-care (01) ==
LOC: CSHERS 09:28
DX: E11.43 Type 2 diabetes mellitus with diabetic autonomic (poly)neuropathy (principal); K31.84 Gastroparesis
CPT/HCPCS: 74177; 80053; 81001; 81025; 83690; 84703; 85025; 93005; 96365; 96366; 96367; 96375; J1200; J1790; J2550; J2765

== ENCOUNTER 2025-07-17 16:02 | Emergency (ER) | payer MEDICAID, OTHER, SELFPAY ==
[2025-07-17] MEDS ORDERED: diphenhydrAMINE 50 MG/ML VIAL ONE (17:02)
[2025-07-17] MEDS ORDERED: Ketorolac Tromethamine 30 MG (1 mL) VIAL ONE (17:02)
[2025-07-17] MEDS ORDERED: Metoclopramide HCl 10 MG (2 mL) VIAL ONE (17:02)
[2025-07-17 17:13] LABS: #Basophils Less than 0.03 10x3/uL (0.0-0.2); #Eosinophils 0.05 10x3/uL (0.0-0.5); #Monocytes 0.48 10x3/uL (0.0-1.1); #Neutrophils 8.82 10x3/uL (1.5-8.4); %Basophils 0.2 % (0.0-2.0); %Eosinophils 0.4 % (0.0-6.0); %Lymphocytes 22.2 % (18.0-47.0); %Monocytes 4.0 % (0.0-10.0); %Neutrophils 72.8 % (40.0-75.0); Hematocrit 38.1 % (34.9-44.5); Hemoglobin 13.1 g/dL (12.0-15.5); Mean Corpuscular Hemoglobin 29.3 pg (27.0-33.0); Mean Corpuscular Volume 85.2 fL (81.6-98.3); Platelet Count 235 10x3/uL (150-450); Red Blood Cell (RBC) Count 4.47 10x6/uL (3.90-5.03); White Blood Cell (WBC) Count 12.11 10x3/uL (3.5-10.5)
[2025-07-17 17:19] LABS: BHCG - Serum Negative (NEGATIVE); Pregs Control Background? CLEAR/WHITE (CLR/WHITE); Pregs Control Bar Appear? YES (CONTROL BAR)
[2025-07-17 17:26] LABS: ALT (SGPT) 16 U/L (Less than 34); AST (SGOT) 24 U/L (11-34); Albumin 4.0 g/dL (3.1-4.5); Alkaline Phosphatase 79 U/L (40-110); Anion Gap 18 mmol/L (10-20); BUN (Urea Nitrogen) 36 mg/dL (7.0-18.7); Bilirubin, Total 0.4 mg/dL (0.3-1.2); Calc. Creatinine Clearance 0 mL/min (70-130); Calcium 9.5 mg/dL (7.8-10.44); Carbon Dioxide 26 mmol/L (22-29); Chloride 105 mmol/L (98-107); Globulin 4.3 g/dL (2.4-3.5); Glucose 225 mg/dL (70-105); Lipase 24 U/L (8-78); Potassium 4.2 mmol/L (3.5-5.1); Sodium 145 mmol/L (136-145)
== END 2025-07-17 18:20 | disposition home or self-care (01) ==
LOC: CSHERS 16:02
DX: R11.2 Nausea with vomiting, unspecified (principal); E11.9 Type 2 diabetes mellitus without complications; Z79.4 Long term (current) use of insulin
CPT/HCPCS: 36415; 74177; 80053; 83690; 84703; 85025; 96374; 96375; J1200; J1885; J2765; Q9967

== ENCOUNTER 2025-08-14 05:48 | Inpatient (IN) | payer SELFPAY ==
[2025-08-14] MEDS ORDERED: diphenhydrAMINE 50 MG/ML VIAL ONE (06:06)
[2025-08-14] MEDS ORDERED: Prochlorperazine 10 MG/2 ML VIAL ONE (06:06)
[2025-08-14 06:13] LABS: #Basophils 0.04 10x3/uL (0.0-0.2); #Eosinophils 0.05 10x3/uL (0.0-0.5); #Monocytes 0.68 10x3/uL (0.0-1.1); #Neutrophils 10.40 10x3/uL (1.5-8.4); %Basophils 0.3 % (0.0-2.0); %Eosinophils 0.4 % (0.0-6.0); %Lymphocytes 14.2 % (18.0-47.0); %Monocytes 5.2 % (0.0-10.0); %Neutrophils 79.5 % (40.0-75.0); Hematocrit 39.7 % (34.9-44.5); Hemoglobin 13.9 g/dL (12.0-15.5); Mean Corpuscular Hemoglobin 29.6 pg (27.0-33.0); Mean Corpuscular Volume 84.6 fL (81.6-98.3); Platelet Count 200 10x3/uL (150-450); Red Blood Cell (RBC) Count 4.69 10x6/uL (3.90-5.03); White Blood Cell (WBC) Count 13.08 10x3/uL (3.5-10.5)
[2025-08-14 06:28] LABS: ALT (SGPT) 17 U/L (Less than 34); AST (SGOT) 19 U/L (11-34); Albumin 3.8 g/dL (3.1-4.5); Alkaline Phosphatase 75 U/L (40-110); Anion Gap 19 mmol/L (10-20); BHCG - Serum Negative (NEGATIVE); BUN (Urea Nitrogen) 27 mg/dL (7.0-18.7); Bilirubin, Total 0.5 mg/dL (0.3-1.2); Calc. Creatinine Clearance 0 mL/min (70-130); Calcium 9.6 mg/dL (7.8-10.44); Carbon Dioxide 23 mmol/L (22-29); Chloride 103 mmol/L (98-107); Globulin 4.3 g/dL (2.4-3.5); Glucose 233 mg/dL (70-105); Potassium 4.0 mmol/L (3.5-5.1); Pregs Control Background? CLEAR/WHITE (CLR/WHITE); Pregs Control Bar Appear? YES (CONTROL BAR); Sodium 141 mmol/L (136-145)
[2025-08-14 09:09] LABS: Glucose, Urine (Dipstick) >=1000 mg/dL (Negative); Leukocyte Negative (Negative); Protein, Urine (Dipstick) 100 mg/dl (Neg-Trace); Specific Gravity, Urine 1.015 (1.005-1.030)
[2025-08-14 09:19] LABS: CAUTI Indications for Culture Alt mental st,lethar; RBC/HPF 0-3 HPF (0-3); WBC/HPF 0-3 HPF (0-3)
[2025-08-14 09:20] LABS: Bacteria/HPF Rare-Few HPF (None Seen); Mucous/LPF 1+ LPF (<2+); Yeast-Budding 1+ HPF (None Seen)
[2025-08-14 09:21] LABS: Urine Culture Reflex No No
[2025-08-14] MEDS ORDERED: Droperidol 5 MG/2 ML VIAL ONE (09:45)
[2025-08-14 16:36] VITALS: BMI 43.4
[2025-08-14] MEDS ORDERED: Melatonin 3 MG TAB PO PRN (16:46)
[2025-08-14] MEDS ORDERED: Acetaminophen 325 MG TAB PO PRN (16:46)
[2025-08-14] MEDS ORDERED: Glucagon 1 MG/ML KIT IM PRN (16:48)
[2025-08-14] MEDS ORDERED: Dextrose 50% Abboject 50 ML SYRINGE SLOW IVP PRN (16:48)
[2025-08-14] MEDS ORDERED: Metoclopramide HCl 10 MG (2 mL) VIAL IVP PRN (16:49)
[2025-08-15 05:05] LABS: #Basophils Less than 0.03 10x3/uL (0.0-0.2); #Eosinophils 0.08 10x3/uL (0.0-0.5); #Monocytes 0.82 10x3/uL (0.0-1.1); #Neutrophils 4.21 10x3/uL (1.5-8.4); %Basophils 0.2 % (0.0-2.0); %Eosinophils 1.0 % (0.0-6.0); %Lymphocytes 37.5 % (18.0-47.0); %Monocytes 9.9 % (0.0-10.0); %Neutrophils 50.7 % (40.0-75.0); Hematocrit 31.3 % (34.9-44.5); Hemoglobin 10.6 g/dL (12.0-15.5); Mean Corpuscular Hemoglobin 29.3 pg (27.0-33.0); Mean Corpuscular Volume 86.5 fL (81.6-98.3); Platelet Count 145 10x3/uL (150-450); Red Blood Cell (RBC) Count 3.62 10x6/uL (3.90-5.03); White Blood Cell (WBC) Count 8.31 10x3/uL (3.5-10.5)
[2025-08-15 05:15] LABS: Anion Gap 19 mmol/L (10-20); BUN (Urea Nitrogen) 16 mg/dL (7.0-18.7); Calc. Creatinine Clearance 168 mL/min (70-130); Calcium 7.9 mg/dL (7.8-10.44); Carbon Dioxide 25 mmol/L (22-29); Chloride 104 mmol/L (98-107); Glucose 160 mg/dL (70-105); Potassium 3.3 mmol/L (3.5-5.1); Sodium 145 mmol/L (136-145)
[2025-08-15] MEDS ORDERED: Potassium Bicarbonate/Cit Ac 20 MEQ TAB PO SCH (08:00)
[2025-08-15 08:04] LABS: Magnesium 2.2 mg/dL (1.6-2.6)
[2025-08-15] MEDS: NS 0.9% w/ 20 MEQ KCL 1,000 ML/1,000 ML BAG IV SCH (10:45)
[2025-08-15] MEDS: Metoclopramide HCl 10 MG (2 mL) VIAL IVP SCH (10:48)
[2025-08-15] MEDS: Pantoprazole 40 MG VIAL IVP SCH (10:49)
[2025-08-15 12:47] VITALS: BMI 43.4
[2025-08-15] MEDS: cloNIDine 0.1 MG TAB PO PRN (17:13)
[2025-08-16 03:52] LABS: #Basophils Less than 0.03 10x3/uL (0.0-0.2); #Eosinophils 0.12 10x3/uL (0.0-0.5); #Monocytes 0.66 10x3/uL (0.0-1.1); #Neutrophils 5.00 10x3/uL (1.5-8.4); %Basophils 0.2 % (0.0-2.0); %Eosinophils 1.3 % (0.0-6.0); %Lymphocytes 35.1 % (18.0-47.0); %Monocytes 7.3 % (0.0-10.0); %Neutrophils 55.5 % (40.0-75.0); Hematocrit 30.5 % (34.9-44.5); Hemoglobin 10.5 g/dL (12.0-15.5); Mean Corpuscular Hemoglobin 29.2 pg (27.0-33.0); Mean Corpuscular Volume 85.0 fL (81.6-98.3); Platelet Count 147 10x3/uL (150-450); Red Blood Cell (RBC) Count 3.59 10x6/uL (3.90-5.03); White Blood Cell (WBC) Count 9.01 10x3/uL (3.5-10.5)
[2025-08-16 04:12] LABS: ALT (SGPT) 15 U/L (Less than 34); AST (SGOT) 19 U/L (11-34); Albumin 2.8 g/dL (3.1-4.5); Alkaline Phosphatase 56 U/L (40-110); Anion Gap 10 mmol/L (10-20); BUN (Urea Nitrogen) 9 mg/dL (7.0-18.7); Bilirubin, Total 0.3 mg/dL (0.3-1.2); Calc. Creatinine Clearance 181 mL/min (70-130); Calcium 8.1 mg/dL (7.8-10.44); Carbon Dioxide 23 mmol/L (22-29); Chloride 109 mmol/L (98-107); Globulin 3.1 g/dL (2.4-3.5); Glucose 135 mg/dL (70-105); Lipase 19 U/L (8-78); Magnesium 2.0 mg/dL (1.6-2.6); Potassium 4.0 mmol/L (3.5-5.1); Sodium 138 mmol/L (136-145)
[2025-08-16] MEDS ORDERED: PHOS-NAK 1 PKT PACK PO SCH (08:30)
[2025-08-16] MEDS ORDERED: PROPOFOL 40 ML ONE (10:10)
[2025-08-16] MEDS: Potassium Phosphate 15 MMOL in Sodium Chloride 0.9% 250 ML 250 ML IVPB SCH (12:14)
[2025-08-16 12:37] VITALS: BP 130/86; TEMP 99.2
== END 2025-08-16 16:41 | disposition home or self-care (01) | DRG 391 ==
LOC: CSHERS 05:48 → CSHTELE 11:53 → OBSVTOIN 08-15 10:03
PROVIDERS: ADMIT Internal Medicine; ATTEND Student in an Organized Health Care Education/Training Program
PROC: 0DB78ZX Excision of Stomach, Pylorus, Via Natural or Artificial Opening Endoscopic, Diagnostic (ICD-10-PCS; principal; 2025-08-16)
DX: K29.70 Gastritis, unspecified, without bleeding (principal); E11.10 Type 2 diabetes mellitus with ketoacidosis without coma; N17.9 Acute kidney failure, unspecified; E78.5 Hyperlipidemia, unspecified; E66.9 Obesity, unspecified; E87.6 Hypokalemia; Z79.899 Other long term (current) drug therapy
CPT/HCPCS: 36415; 36416; 74176; 80048; 80053; 81001; 82010; 83605; 83690; 83735; 84100; 84703; 85025; 88305; 88342; 93005; 96374; 96375; 99292; G0378; J0780; J1200; J1790; J2470; J2704; J2765; J3480; J7030; J7050

== ENCOUNTER 2025-08-22 09:22 | Emergency (ER) | payer SELFPAY ==
[2025-08-22 10:41] LABS: #Basophils Less than 0.03 10x3/uL (0.0-0.2); #Eosinophils 0.07 10x3/uL (0.0-0.5); #Monocytes 0.54 10x3/uL (0.0-1.1); #Neutrophils 8.65 10x3/uL (1.5-8.4); %Basophils 0.1 % (0.0-2.0); %Eosinophils 0.6 % (0.0-6.0); %Lymphocytes 22.8 % (18.0-47.0); %Monocytes 4.5 % (0.0-10.0); %Neutrophils 71.5 % (40.0-75.0); Hematocrit 37.6 % (34.9-44.5); Hemoglobin 13.0 g/dL (12.0-15.5); Mean Corpuscular Hemoglobin 28.8 pg (27.0-33.0); Mean Corpuscular Volume 83.4 fL (81.6-98.3); Platelet Count 197 10x3/uL (150-450); Red Blood Cell (RBC) Count 4.51 10x6/uL (3.90-5.03); White Blood Cell (WBC) Count 12.08 10x3/uL (3.5-10.5)
[2025-08-22 10:52] LABS: BHCG - Serum Negative (NEGATIVE); Pregs Control Background? CLEAR/WHITE (CLR/WHITE); Pregs Control Bar Appear? YES (CONTROL BAR)
[2025-08-22] MEDS ORDERED: Famotidine/PF 20 mg/2ml Vial ONE (10:55)
[2025-08-22] MEDS ORDERED: Lidocaine Viscous Sol 2% 15 ml UD Cup ONE (10:55)
[2025-08-22] MEDS ORDERED: Mag-Al 1200 mg/1200 mg/30 ML UDCUP ONE (10:55)
[2025-08-22] MEDS ORDERED: Metoclopramide HCl 10 MG (2 mL) VIAL ONE (10:55)
[2025-08-22 11:03] LABS: ALT (SGPT) 18 U/L (Less than 34); AST (SGOT) 19 U/L (11-34); Albumin 3.4 g/dL (3.1-4.5); Alkaline Phosphatase 64 U/L (40-110); Anion Gap 14 mmol/L (10-20); BUN (Urea Nitrogen) 17 mg/dL (7.0-18.7); Bilirubin, Total 0.4 mg/dL (0.3-1.2); Calc. Creatinine Clearance 0 mL/min (70-130); Calcium 9.2 mg/dL (7.8-10.44); Carbon Dioxide 23 mmol/L (22-29); Chloride 105 mmol/L (98-107); Globulin 3.9 g/dL (2.4-3.5); Glucose 194 mg/dL (70-105); Lipase 39 U/L (8-78); Potassium 4.1 mmol/L (3.5-5.1); Sodium 138 mmol/L (136-145)
== END 2025-08-22 12:55 | disposition home or self-care (01) ==
LOC: CSHERS 09:22
DX: K29.00 Acute gastritis without bleeding (principal); E11.9 Type 2 diabetes mellitus without complications; I10 Essential (primary) hypertension
CPT/HCPCS: 80053; 83690; 84703; 85025; 96361; 96374; 96375; J1308; J2765